=== PATIENT | female | born 1945 | race American Indian/Alaskan Native ===

== ENCOUNTER 2024-04-17 08:41 | Day surgery (SDC) | payer MEDICARE, SELFPAY ==
--- NOTE | ~2024-04-17 | FL_ITS ---
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 TECHNIQUE: Risks and benefits and possible complications were discussed with the patient and the consent form was signed. Patient was placed prone on the fluoroscopy table. The back was prepped and draped in routine sterile fashion. Betadine was used as a skin antiseptic. Utilizing fluoroscopic guidance, the L5-S1 interlaminar space was accessed with a 22 gague Wil spinal needle and clear CSF fluid was obtained. Opening pressure was 5 cm H2O in the left lateral decubitus position, however, would increase with Valsalva movements. 4 cc of fluid was sent for analysis. The needle was removed without immediate complications. Total fluoroscopy time: 1 minute 40 seconds FL/FL guided lumbar puncture LP IMPRESSION: Successful fluoroscopic guided lumbar puncture at L5-S1. Opening pressure was 5 cm H2O, however increased with Valsalva movements. This may suggests central stenosis above this level. This procedure was performed by Isreal Zavala PA-C and supervised by Dr. Thompson. Electronically signed by: Braxton Thompson MD 04/17/2024 02:41 PM [facility] [place]
[2024-04-17 10:41] VITALS: BMI 23.9
[2024-04-17 10:49] VITALS: BP 109/69; PULSE 75; RESP 18; TEMP 37.1; O2SAT 100
[2024-04-17 11:40] VITALS: BP 112/75; PULSE 71; RESP 18; TEMP 36.1; O2SAT 100
[2024-04-17 12:23] VITALS: BP 122/71; PULSE 71; RESP 18; TEMP 36.1; O2SAT 100
--- OUTSIDE RECORDS SUMMARY | 2024-04-23 16:29 | XMS_ITS | Continuity of Care Document ---
Author Organization [facility], Carrie PT Address [address] [place] [address] Care Team Providers Care Senior Engineering Associate Name Role Phone YARELY DINERO Referring Provider YARELY DINERO Primary Care Provider [phone] Assessment Encounter Date Assessment Date Assessment LastModified by Organization Details LastModified Time 03/13/2024 03/13/2024 A: Pt DC to [facility] and will cont strengthening on own to help improve ADLs P: Cont Poc. Progress to tolerance. Pt DC to [facility] [email or web address] Not available 03/13/2024 14:23:12 Plan of Treatment Reminders Order Date Submit Date Provider Last Modified By Organization Details Last Modified Time Details Appointments None record ed. Lab None record ed. Referral None record ed. Procedures None record ed. Surgeries None record ed. Imaging None record ed. Medication Orders None record ed. Patient TargetsNo targets recorded. Patient InstructionsNo instructions recorded. Reason for Referral None Reported. 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 Procedures Surgical History Date Name Laterality Status Provider Name and Address Organization Details Recorded Time 4 42739 Therapeutic Exercise (1:1) completed Zhen Smith, PT [address], [place], [address], [facility] 01/01/2024 12:52:58 4 30444: Manual therapy completed Zhen Smith, PT [address], [place], [address], [facility] 01/01/2024 12:51:19 4 82781 Therapeutic Exercise (1:1) completed Shakeel Rios, RAILWAY SIGNALLING ENGINEER [address], [place], [address], [facility] 12/27/2023 08:42:46 4 55595: Manual therapy completed Shakeel Rios, RAILWAY SIGNALLING ENGINEER [address], [place], [address], [facility] 12/27/2023 08:42:46 4 94046 Therapeutic Exercise (1:1) completed Shakeel Rios, RAILWAY SIGNALLING ENGINEER [address], [place], [address], [facility] 12/25/2023 12:38:33 4 57274: Manual therapy completed Shakeel Rios RAILWAY SIGNALLING ENGINEER [address], [place], [address], [facility] 12/25/2023 12:38:37 4 00733 Therapeutic Exercise (1:1) completed Zhen Smith PT [address], [place], [address], [facility] 12/18/2023 15:13:19 4 69806: Manual therapy completed Zhen Smith PT [address], [place], [address], [facility] 12/18/2023 15:13:19 4 03821 Therapeutic Exercise (1:1) completed Zhen Smith PT [address], [place], [address], [facility] 12/18/2023 12:31:39 4 11148: Manual therapy completed Zhen Smith PT [address], [place], [address], [facility] 12/18/2023 12:31:31 4 59057 Therapeutic Exercise (1:1) completed Shakeel Rios RAILWAY SIGNALLING ENGINEER [address], [place], [address], [facility] 12/12/2023 17:54:34 4 77762: Manual therapy completed Shakeel Rios RAILWAY SIGNALLING ENGINEER [address], [place], [address], [facility] 12/12/2023 17:54:34 4 61686 Therapeutic Exercise (1:1) completed Shakeel Rios PTA [address], [place], [address], [facility] 12/07/2023 11:12:18 4 24964: Manual therapy completed Shakeel Rios PTA [address], [place], [address], [facility] 12/11/2023 12:41:21 4 45851 Therapeutic Exercise (1:1) completed Zhen Smith PT [address], [place], [address], [facility] 12/06/2023 12:44:33 4 85533: Manual therapy completed Zhen Smith PT [address], [place], [address], [facility] 12/06/2023 12:44:10 4 43296 Therapeutic Exercise (1:1) completed Zhen Smith PT [address], [place], [address], [facility] 12/04/2023 12:37:09 4 88153: Manual therapy completed Zhen Smith, PT [address], [place], [address], [facility] 12/04/2023 12:37:24 4 06614 Therapeutic Exercise (1:1) completed Shakeel Rios, RAILWAY SIGNALLING ENGINEER [address], [place], [address], [facility] 11/29/2023 13:11:31 4 48955: Manual therapy completed Shakeel Rios, RAILWAY SIGNALLING ENGINEER [address], [place], [address], [facility] 11/29/2023 13:11:13 4 82980: Manual therapy completed Zhen Smith, PT [address], [place], [address], [facility] 11/27/2023 11:09:35 4 02708: Manual therapy completed Zhen Smith, PT [address], [place], [address], [facility] 11/22/2023 12:46:30 4 52920: Manual therapy completed Zhen Smith PT [address], [place], [address], [facility] 11/20/2023 12:40:40 4 76167: Manual therapy completed Zhen Smith PT [address], [place], [address], [facility] 11/15/2023 11:21:35 4 54551: Low complexity PT Eval completed Zhen Smith, PT [address], [place], [address], [facility] 11/15/2023 11:21:27 4 G8421 BMI Not Calculated, Reason Not Specified completed Zhen Smith, PT [address], [place], [address], [facility] 11/15/2023 11:26:23 4 G8428 Current Meds NOT Documented Reason Not Specified completed Zhen Smith, PT [address] [facility] [address], [place], [address], [facility] 11/15/2023 11:43:07 4 Sports Shoulder 4&1 completed Vazquez Heath MD [address] [facility] [address], [place], [address], [facility] 09/06/2023 11:38:04 Imaging Results None recorded. Procedure Notes None recorded. Medical Equipment None Reported. Allergies No known drug allergies Medications Name Sig Start Date Stop Date Status Note LastModified by Organization Details LastModified Time torsemide 20 mg tablet TAKE 2 TABLETS BY MOUTH EVERY DAY active Not Available Not Available No t Available tizanidine 2 mg tablet TAKE 1 TABLET BY MOUTH EVERYDAY AT BEDTIME active Not Available Not Available N ot Available simvastatin 20 mg tablet TAKE 1 TABLET BY MOUTH EVERYDAY AT BEDTIME active Not Available Not Available N ot Available furosemide 20 mg tablet TAKE 1 TABLET BY MOUTH EVERY DAY active Not Available Not Available No t Available carbidopa 25 mg-levodopa 100 mg tablet TAKE 1 TABLET BY MOUTH THREE TIMES A DAY FOR 30 DAYS active Not Available Not Available No t Available naproxen 500 mg tablet TAKE 1 TABLET BY MOUTH TWICE A DAY active Not Available Not Available No t Available oxycodone 5 mg tablet TAKE 1-2 TABLETS EVERY 4 HOURS NEEDED 7 DAYS active Not Available Not Available No t Available Eliquis 5 mg tablet TAKE 1 TABLET BY MOUTH TWICE A DAY active Not Available Not Available No t Available potassium chloride ER 20 mEq tablet,extend ed release TAKE 1 TABLET BY MOUTH TWICE A DAY active Not Available Not Available No t Available Vitals None Recorded Social History None recorded. Functional Status None recorded. Mental Status None recorded. Family History Nothing Reported. Medical History Condition Response Allergies/Hayfever N Coronary Artery Disease N Anxiety/Depression N Emphysema N Thyroid Problems N COPD N Pacemaker N Kidney/Bladder Problems N Anemia N Vascular Disease N Gastrointestinal Disease N Heart Attack (LA) N Diabetes N Autoimmune disease N Bleeding Disorder N Orthotics N Arthritis N Seizures/Epilepsy N Blood Clot N AIDS/HIV N Congestive Heart Failure (CHF) N Acid Reflux (GERD) N Cancer N Stroke N Asthma N Peripheral Vascular Disease N Sleep Apnea N Hepatitis N Heart Disease N Rheumatoid Arthritis N Arrhythmia N Pulmonary Embolism N Fibromyalgia N Hypertension N Osteoporosis N Gynecological HistoryNo gynecological history recorded. Obstetrics History GPAL:G 0 P 0 0 0 0 Past Encounters Encounter ID Performer Location Encounter Start Date Encounter Closed Date Diagnosis/Indication Diagnosis SNOMED-CT Code Diagnosis ICD10 Code [id number] Zhen Smith, PT [facility] [address] [place] [address] 02/12/2024 13:23:30 02/12/2024 14:18:55 History of reverse prosthetic total arthroplasty of right shoulder 9136597820 2019958 Z96.833 [id number] Zhen Smith, PT [facility] [address] [place] [address] 02/14/2024 10:50:46 02/14/2024 11:47:09 History of reverse prosthetic total arthroplasty of right shoulder 0907707440 0282547 Z96.564 [id number] MD [facility] [address] [place] [address] 02/14/2024 09:30:28 03/06/2024 16:08:25 Rupture of rotator cuff of right shoulder 5186199003 2209288 M75.121 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 8986780316 06716 M19.893 [id number] L[facility] [address] [place] [address] 02/19/2024 11:53:47 02/19/2024 13:01:35 History of reverse prosthetic total arthroplasty of right shoulder 5463804664 0532713 Z96.798 [id number] LYLE Seque[facility] PT [address] [facility] [address] 02/21/2024 14:54:04 02/21/2024 15:54:29 History of reverse prosthetic total arthroplasty of right shoulder 4065307465 3554193 Z96.539 [id number] L[facility] Se[facility] PT [address] [place] [address] 02/28/2024 13:05:06 02/28/2024 13:24:31 History of reverse prosthetic total arthroplasty of right shoulder 9850758368 7759544 Z96.064 [id number] LYLE Seque[facility] PT [address] [place] [address] 03/01/2024 13:27:44 03/01/2024 14:21:02 History of reverse prosthetic total arthroplasty of right shoulder 7755048709 8013183 Z96.378 [id number] Zhen Smith, PT [facility] [address] [place] [address] 03/06/2024 13:58:33 03/06/2024 17:00:46 History of reverse prosthetic total arthroplasty of right shoulder 3105445320 0709737 Z96.084 [id number] MD [facility] [address] [place] [address] 03/08/2024 13:23:42 03/08/2024 14:22:06 History of reverse prosthetic total arthroplasty of right shoulder 1110225496 8699682 Z96.879 [id number] Zhen Smith, PT [facility] [address] [place] [address] 03/11/2024 12:34:00 03/11/2024 13:22:57 History of reverse prosthetic total arthroplasty of right shoulder 7110286719 9624747 Z96.178 [id number] Zhen Smith, PT [facility] [address] [place] [address] 03/13/2024 13:25:29 03/13/2024 14:23:56 History of reverse prosthetic total arthroplasty of right shoulder 3616900631 1293081 Z96.611 Health Concerns Section Related Observation LastModified by Organization Detai ls LastModified Time None Recorded Concern Status LastModified by Organization Details LastModified Time None Recorded Payers Encounter Date Sequence Insurance Name Policy Number Policy Tello Covered Member ID Tello Member ID Guarantor Name 03/13/2024 2 [facility] [id number] PLAN (MEDICARE SUPPLEMENT) [id number] Debbie Mejia [id number] Debbie Mejia 03/13/2024 1 [place]ARE [place]: [facility] [employer] [facility] Debbie Mejia [id number] Debbie Mejia Notes Date Note Type Note Provider Name and Address Organization Details Recorded Time 03/13/2024 text/html Pt states she patel ve difficulties putting her hand behind her back to do anything hSakeel Rios, RAILWAY SIGNALLING ENGINEER [address], [place], [address], [facility] 03/13/2024 14:23:48 OBGyn Episode No OBEpisode recorded.
--- OUTSIDE RECORDS SUMMARY | 2024-04-23 16:29 | XMS_ITS | Data Portability ---
Author Organization [place] - [facility] Address [address] [place] [address] Care Team Providers Care Forest Resource Specialist Name Role Phone YARELY DINERO Referring Provider YARELY DINERO Primary Care Provider [phone] Assessment Encounter Date Assessment Date Assessment LastModified by Organization Details LastModified Time 03/01/2024 03/01/2024 A: Pt's cont to work on cuff strength with increase resistance and reps. Pt's mechanics cont to improve with pre's. P: Cont Poc. Progress to tolerance. [email or web address] Not available 03/01/2024 14:16:57 03/06/2024 03/06/2024 A: Pt improved extremely well overall and cont to progress with resistance strengthening. Pt's overhead motion is improving allowing for more functional activities to be performed. P: Cont Poc. Progress to tolerance. [email or web address] Not available 03/06/2024 15:42:14 03/08/2024 03/08/2024 A: See Med recert P: Cont Poc. Progress to tolerance. [email or web address] Not available 03/07/2024 12:56:16 03/11/2024 03/11/2024 A: Pt's active IR has improved. Advised pt not push her arm any higher than what she can do now. P: Cont Poc. Progress to tolerance. Not available 03/11/2024 13:22:19 03/13/2024 03/13/2024 A: Pt DC to [facility] and will cont strengthening on own to help improve ADLs P: Cont Poc. Progress to tolerance. Pt DC to I HEP [email or web address] Not available 03/13/2024 14:23:12 Plan of Treatment [...] Address Organization Details Recorded Time No complaints [id number] Active Status : 'A'; Not Available [facility] 4 09:21:31 Rupture of rotator cuff of right shoulder [id number] 9103 Active 2023 Vazquez Heath MD [address], [place], [address] , [facility] 4 11:37:36 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 [id number] 00 [facility] 4 11:38:44 Problem Notes None recorded. Procedures Surgical History Date Name Laterality Status Provider Name and Address Organization Details Recorded Time 4 20151 Therapeutic Exercise (1:1) completed Zhen Smith, PT [address], [place], [address], [facility] 01/01/2024 12:52:58 4 33273: Manual therapy completed Zhen Smith PT [address], [place], [address], [facility] 01/01/2024 12:51:19 4 65445 Therapeutic Exercise (1:1) completed Shakeel Rios PTA [address], [place], [address], [facility] 12/27/2023 08:42:46 4 45683: Manual therapy completed Shakeel Rios PTA [address], [place], [address], [facility] 12/27/2023 08:42:46 4 14193 Therapeutic Exercise (1:1) completed Shakeel Rios PTA [address], [place], [address], [facility] 12/25/2023 12:38:33 4 35405: Manual therapy completed Shakeel Rios [employer] [address], [place], [address], [facility] 12/25/2023 12:38:37 4 42926 Therapeutic Exercise (1:1) completed Zhen Smith, PT [address], [place], [address], [facility] 12/18/2023 15:13:19 4 53143: Manual therapy completed Zhen Smith PT [address], [place], [address], [facility] 12/18/2023 15:13:19 4 44058 Therapeutic Exercise (1:1) completed Zhen Smith, PT [address], [place], [address], [facility] 12/18/2023 12:31:39 4 36953: Manual therapy completed Zhen Smith PT [address], [place], [address], [facility] 12/18/2023 12:31:31 4 16504 Therapeutic Exercise (1:1) completed Shakeel Rios PTA [address], [place], [address], [facility] 12/12/2023 17:54:34 4 49750: Manual therapy completed Shakeel Rios PTA [address], [place], [address], [facility] 12/12/2023 17:54:34 4 92179 Therapeutic Exercise (1:1) completed Shakeel Rios PTA [address], [place], [address], [facility] 12/07/2023 11:12:18 4 73278: Manual therapy completed Shakeel Rios PTA [address], [place], [address], [facility] 12/11/2023 12:41:21 4 01334 Therapeutic Exercise (1:1) completed Zhen Smith, PT [address], [place], [address], [facility] 12/06/2023 12:44:33 4 21073: Manual therapy completed Zhen Smith, PT [address], [place], [address], [facility] 12/06/2023 12:44:10 4 96986 Therapeutic Exercise (1:1) completed Zhen Smith, PT [address], [place], [address], [facility] 12/04/2023 12:37:09 4 16200: Manual therapy completed Zhen Smith, PT [address], [place], [address], [facility] 12/04/2023 12:37:24 4 41375 Therapeutic Exercise (1:1) completed Shakeel Rios PTA [address], [place], [address], [facility] 11/29/2023 13:11:31 4 79689: Manual therapy completed Shakeel Rios PTA [address], [place], [address], [facility] 11/29/2023 13:11:13 4 76393: Manual therapy completed Zhen Smith PT [address], [place], [address], [facility] 11/27/2023 11:09:35 4 62903: Manual therapy completed Zhen Smith, PT [address], [place], [address], [facility] 11/22/2023 12:46:30 4 15429: Manual therapy completed Zhen Smith, PT [address] [facility], [place], [address], [facility] 11/20/2023 12:40:40 4 47990: Manual therapy completed Zhen Smith, PT [address], [place], [address], [facility] 11/15/2023 11:21:35 4 47723: Low complexity PT Eval completed Zhen Smith, PT [address], [place], [address], [facility] 11/15/2023 11:21:27 4 G8421 BMI Not Calculated, Reason Not Specified completed Zhen Smith, PT [address], [place], [address], [facility] 11/15/2023 11:26:23 4 G8428 Current Meds NOT Documented Reason Not Specified completed Zhen Smith, PT [address], [place], [address], [facility] 11/15/2023 11:43:07 4 Sports Shoulder 4&1 completed Vazquez Heath MD [address], [place], [address], [facility] 09/06/2023 11:38:04 Imaging Results None recorded. [...] Thyroid Problems N COPD N Pacemaker N Anemia N Kidney/Bladder Problems N Vascular Disease N Heart Attack (NV) N Gastrointestinal Disease N Diabetes N Autoimmune disease N Bleeding [...] Diagnosis/Indication Diagnosis SNOMED-CT Code Diagnosis ICD10 Code [id number] [facility] [address] [place] [address] 08/17/2023 10:53:24 09/05/2023 10:24:24 Pain of right shoulder joint [id number] 4654142 M25.511 Rupture of rotator cuff of right shoulder 5966531047 7020348 M75.125 [id number] MD Carrie [facility] [address] [place] [address] 09/06/2023 10:48:03 09/27/2023 09:33:16 Rupture of rotator cuff of right shoulder 9174649270 5285673 M75.221 [id number] MD Onesimo Carias 2nd floor [address] [place] [address] 11/08/2023 09:19:18 12/13/2023 11:19:32 Osteoarthritis of joint of right shoulder region 2399240872 61431 M19.011 History of reverse prosthetic total arthroplasty of right shoulder 9472068033 5044313 Z96.622 [id number] MD Melva Cariason PT [address] [place] [place] [address] 11/15/2023 10:36:00 11/15/2023 11:43:57 History of reverse prosthetic total arthroplasty of right shoulder 9558375596 4997724 Z96.572 [id number] Zhen Smith, PT [facility] [address] [facility] [address] 11/20/2023 11:59:41 11/20/2023 12:42:54 History of reverse prosthetic total arthroplasty of right shoulder 5379966182 4258670 Z96.687 [id number] Zhen Smith, PT [facility] [address] [place] [address] 11/22/2023 12:00:16 11/22/2023 12:46:49 History of reverse prosthetic total arthroplasty of right shoulder 5497684837 1908187 Z96.457 [id number] Zhen Smith, PT [facility] [address] [place] [address] 11/27/2023 10:30:58 11/27/2023 11:10:48 History of reverse prosthetic total arthroplasty of right shoulder 1500626151 0312834 Z96.922 [id number] Zhen Smith, PT [facility] [address] [facility] [place] [address] 11/29/2023 11:55:49 11/29/2023 13:15:01 History of reverse prosthetic total arthroplasty of right shoulder 8774919655 0845207 Z96.798 [id number] Zhen Smith, PT [facility] [address] [facility] [place] [address] 12/04/2023 11:54:47 12/04/2023 12:38:49 History of reverse prosthetic total arthroplasty of right shoulder 0556946044 7547677 Z96.360 [id number] Zhen Smith, PT [facility] [address] [place] [address] 12/06/2023 11:54:05 12/06/2023 12:46:24 History of reverse prosthetic total arthroplasty of right shoulder 2737212710 8015279 Z96.854 [id number] Zhen Smith, PT [facility] [address] [place] [address] 12/11/2023 11:54:12 12/11/2023 12:47:10 History of reverse prosthetic total arthroplasty of right shoulder 1915111946 4810737 Z96.063 [id number] Zhen Smith, PT [facility] [address] [place] [address] 12/13/2023 11:56:44 12/13/2023 12:45:36 History of reverse prosthetic total arthroplasty of right shoulder 6129391945 9528585 Z96.280 [id number] Vazquez Heath MD [facility] [address] [place] [address] 12/18/2023 11:52:23 12/18/2023 12:44:05 History of reverse prosthetic total arthroplasty of right shoulder 6983836857 3905765 Z96.488 [id number] Zhen Smith, PT [facility] [address] [place] [address] 12/20/2023 11:50:53 12/20/2023 12:36:11 History of reverse prosthetic total arthroplasty of right shoulder 2682569668 6711317 Z96.348 [id number] Zhen Smith, PT [facility] [address] [place] [address] 12/25/2023 11:56:34 12/25/2023 12:41:39 History of reverse prosthetic total arthroplasty of right shoulder 2617580436 6253035 Z96.717 [id number] Zhen Smith, PT [facility] [address] [place] [address] 12/27/2023 11:54:18 12/27/2023 13:03:29 History of reverse prosthetic total arthroplasty of right shoulder 3999414340 8606956 Z96.829 [id number] Zhen Smith, PT [facility] [address] [place] [address] 01/01/2024 11:55:45 01/01/2024 12:53:53 History of reverse prosthetic total arthroplasty of right shoulder 0000920589 1117505 Z96.938 [id number] Zhen Smith, PT [facility] [address] [place] [address] 01/03/2024 11:59:22 01/03/2024 12:44:28 History of reverse prosthetic total arthroplasty of right shoulder 5163590627 0783353 Z96.301 [id number] FRANKLYN Peguero 3rd floor [address] [place] [address] 01/10/2024 09:20:17 02/02/2024 11:30:34 History of reverse prosthetic total arthroplasty of right shoulder 6496719603 1732051 Z96.880 [id number] Cam Thrasher, PT [facility] [address] [place] [address] 01/17/2024 15:55:35 01/17/2024 16:39:27 History of reverse prosthetic total arthroplasty of right shoulder 8715174531 8922859 Z96.564 [id number] Cam Thrasher, PT [facility] [address] [place] [place] [address] 01/22/2024 09:26:38 01/22/2024 10:29:47 History of reverse prosthetic total arthroplasty of right shoulder 7055805494 2908579 Z96.268 [id number] Zhen Smith, PT [facility] [address] [place] [place] [address] 01/24/2024 11:51:42 01/24/2024 12:34:04 History of reverse prosthetic total arthroplasty of right shoulder 4043429574 1164042 Z96.476 [id number] Zhen Smith, PT [facility] [address] [place] [address] 01/29/2024 11:25:45 01/29/2024 12:35:24 History of reverse prosthetic total arthroplasty of right shoulder 4536653403 0848219 Z96.140 [id number] MD Carrie Carias PT [address] [place] [place] [address] 01/31/2024 10:56:47 01/31/2024 12:02:23 History of reverse prosthetic total arthroplasty of right shoulder 4532225715 1832307 Z96.045 [id number] Zhen Smith, PT [facility] [address] [place] [address] 02/05/2024 11:29:18 02/05/2024 12:25:07 History of reverse prosthetic total arthroplasty of right shoulder 0926447303 9265029 Z96.744 [id number] Zhen Smith PT [facility] [address] [place] [address] 02/07/2024 10:55:14 02/07/2024 11:43:32 History of reverse prosthetic total arthroplasty of right shoulder 8692898615 9529499 Z96.614 [id number] Zhen Smith PT [facility] [address] [place] [address] 02/12/2024 13:23:30 02/12/2024 14:18:55 History of reverse prosthetic total arthroplasty of right shoulder 1361741718 6421304 Z96.494 [id number] LYLE Sequeiraon PT [address] [place] [address] 02/14/2024 10:50:46 02/14/2024 11:47:09 History of reverse prosthetic total arthroplasty of right shoulder 2921399483 0824620 Z96.627 [id number] MD Carrie [facility] [address] [place] [address] 02/14/2024 09:30:28 03/06/2024 16:08:25 Rupture of rotator cuff of right shoulder 8488336175 9106717 M75.121 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 9523050821 18679 M19.186 [id number] Zhen Smith PT [facility] [address] [place] [address] 02/19/2024 11:53:47 02/19/2024 13:01:35 History of reverse prosthetic total arthroplasty of right shoulder 9420400567 4565290 Z96.259 [id number] Zhen Smith PT [facility] [address] [place] [address] 02/21/2024 14:54:04 02/21/2024 15:54:29 History of reverse prosthetic total arthroplasty of right shoulder 3667118386 7192110 Z96.132 [id number] Zhen Smith, PT [facility] [address] [place] [address] 02/28/2024 13:05:06 02/28/2024 13:24:31 History of reverse prosthetic total arthroplasty of right shoulder 6421523514 4139663 Z96.581 [id number] Zhen Smith, PT [facility] [address] [place] [address] 03/01/2024 13:27:44 03/01/2024 14:21:02 History of reverse prosthetic total arthroplasty of right shoulder 1110660304 2336980 Z96.385 [id number] Zhen Smith, PT [facility] [address] [place] [address] 03/06/2024 13:58:33 03/06/2024 17:00:46 History of reverse prosthetic total arthroplasty of right shoulder 5653104152 3472708 Z96.977 [id number] MD Melva Cariason PT [address] [place] [address] 03/08/2024 13:23:42 03/08/2024 14:22:06 History of reverse prosthetic total arthroplasty of right shoulder 1474110898 6007787 Z96.377 [id number] Zhen Smith, PT [facility] [address] [place] [address] 03/11/2024 12:34:00 03/11/2024 13:22:57 History of reverse prosthetic total arthroplasty of right shoulder 8713141433 5815081 Z96.468 [id number] Zhen Smith, PT [facility] [address] [place] [address] 03/13/2024 13:25:29 03/13/2024 14:23:56 History of reverse prosthetic total arthroplasty of right shoulder 9683778917 4641093 Z96.611 Health Concerns Section Related Observation LastModified by Organization Detai ls LastModified Time None Recorded Concern Status LastModified by Organization Details LastModified Time None Recorded Advance Directives Directive None Recorded Payers Encounter Date Sequence Insurance Name Policy Number Policy Tello Covered Member ID Tello Member ID Guarantor Name 03/01/2024 2 [facility] (MEDICARE SUPPLEMENT) [id number] Debbie Axas [id number] Debbie Axas 03/01/2024 1 [place] Debbie Axas [id number] Debbie Axas 03/06/2024 2 [facility] (MEDICARE SUPPLEMENT) [id number] Debbie Axas [id number] Debbie Axas 03/06/2024 1 [place] Debbie Axas [id number] Debbie Axas 03/08/2024 2 [facility] (MEDICARE SUPPLEMENT) [id number] Debbie Axas [id number] Debbie Axas 03/08/2024 1 [place] Debbie Axas [id number] Debbie Axas 03/11/2024 2 [facility] (MEDICARE SUPPLEMENT) [id number] Debbie Axas [id number] Debbie Axas 03/11/2024 1 [place] Debbie Axas [id number] 0 Debbie Axas 03/13/2024 2 [facility] (MEDICARE SUPPLEMENT) [id number] Debbie Axas [id number] Debbie Axas 03/13/2024 1 [place] Debbie Axas [id number] 0 Debbie Axas Notes Date Note Type Note Provider Name and Address Organization Details Recorded Time 03/01/2024 text/html my shoulder is feeling good but I still get pain 06/24. Pt have trouble grabbing items from top shelf. Shakeel Rios, [employer] [address], [place], [address], [facility] 03/01/2024 14:20:51 03/06/2024 text/html Pt states she patel ve difficulties putting her hand behind her back to do anything Shakeel Rios, [employer] [address], [place], [address], [facility] 03/06/2024 15:43:13 03/08/2024 text/html Pt states she patel ve difficulties putting her hand behind her back to do anything Zhen Smith, PT [address], [place], [address], [facility] 03/10/2024 22:11:15 03/11/2024 text/html Pt states no new complaints. Zhen Smith, PT [address], [place], [address], [facility] 03/11/2024 13:22:40 03/13/2024 text/html Pt states she patel ve difficulties putting her hand behind her back to do anything Shakeel Rios, [employer] [address], [place], [address], [facility] 03/13/2024 14:23:48 OBGyn Episode No OBEpisode recorded.
--- OUTSIDE RECORDS SUMMARY | 2024-04-23 16:29 | XMS_ITS | Continuity of Care Document ---
Author Organization [place] - [facility] Address [address] [place] [address] Care Team Providers Care Display Designer Name Role Phone YARELY DINERO Referring Provider [phone] YARELY DINERO Primary Care Provider Assessment Encounter Date Assessment Date Assessment LastModified by Organization Details LastModified Time 03/11/2024 03/11/2024 A: Pt's active IR has improved. Advised pt not push her arm any higher than what she can do now. P: Cont Poc. Progress to tolerance. [email or web address] Not available 03/11/2024 13:22:19 Plan of Treatment Reminders Order Date Submit [...] Address Organization Details Recorded Time No complaints [id number] Active Status : 'A'; Not Available [facility] 4 09:21:31 Rupture of rotator cuff of right shoulder [id number] 9103 Active 2023 Vazquez Heath MD [address], [place], [address] , [facility] 4 11:37:36 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 [id number] 00 Active 2023 CHARO estrada [place] - [facility] 4 11:38:44 Problem Notes None recorded. Procedures Surgical History Date Name Laterality Status Provider Name and Address Organization Details Recorded Time 4 33115 Therapeutic Exercise (1:1) completed Zhen Smith, PT [address], [place], [address], [facility] 01/01/2024 12:52:58 4 94311: Manual therapy completed Zhen Smith, PT [address], [place], [address], [facility] 01/01/2024 12:51:19 4 80472 Therapeutic Exercise (1:1) completed Shakeel Rios, MEDICAL ASST [address], [place], [address], [facility] 12/27/2023 08:42:46 4 33489: Manual therapy completed Shakeel Rios, MEDICAL ASST [address], [place], [address], [facility] 12/27/2023 08:42:46 4 68420 Therapeutic Exercise (1:1) completed Shakeel Rios, MEDICAL ASST [address], [place], [address], [facility] 12/25/2023 12:38:33 4 44943: Manual therapy completed Shakeel Rios MEDICAL ASST [address], [place], [address], [facility] 12/25/2023 12:38:37 4 00215 Therapeutic Exercise (1:1) completed Zhen Smith, PT [address], [place], [address], [facility] 12/18/2023 15:13:19 4 47311: Manual therapy completed Zhen Smith PT [address], [place], [address], [facility] 12/18/2023 15:13:19 4 29647 Therapeutic Exercise (1:1) completed Zhen Smith PT [address], [place], [address], [facility] 12/18/2023 12:31:39 4 53592: Manual therapy completed Zhen Smith PT [address], [place], [address], [facility] 12/18/2023 12:31:31 4 29250 Therapeutic Exercise (1:1) completed Shakeel Rios MEDICAL ASST [address], [place], [address], [facility] 12/12/2023 17:54:34 4 84178: Manual therapy completed Shakeel Rios MEDICAL ASST [address], [place], [address], [facility] 12/12/2023 17:54:34 4 47536 Therapeutic Exercise (1:1) completed Shakeel Rios PTA [address], [place], [address], [facility] 12/07/2023 11:12:18 4 74820: Manual therapy completed Shakeel Rios PTA [address], [place], [address], [facility] 12/11/2023 12:41:21 4 61570 Therapeutic Exercise (1:1) completed Zhen Smith PT [address], [place], [address], [facility] 12/06/2023 12:44:33 4 08754: Manual therapy completed Zhen Smith PT [address], [place], [address], [facility] 12/06/2023 12:44:10 4 51362 Therapeutic Exercise (1:1) completed Zhen Smith PT [address], [place], [address], [facility] 12/04/2023 12:37:09 4 69077: Manual therapy completed Zhen Smith, PT [address], [place], [address], [facility] 12/04/2023 12:37:24 4 45678 Therapeutic Exercise (1:1) completed Shakeel Rios, MEDICAL ASST [address], [place], [address], [facility] 11/29/2023 13:11:31 4 81680: Manual therapy completed Shakeel Rios, MEDICAL ASST [address], [place], [address], [facility] 11/29/2023 13:11:13 4 69048: Manual therapy completed Zhen Smith, PT [address], [place], [address], [facility] 11/27/2023 11:09:35 4 43573: Manual therapy completed Zhen Smith, PT [address], [place], [address], [facility] 11/22/2023 12:46:30 4 08777: Manual therapy completed Zhen Smith PT [address], [place], [address], [facility] 11/20/2023 12:40:40 4 54953: Manual therapy completed Zhen Smith PT [address], [place], [address], [facility] 11/15/2023 11:21:35 4 65576: Low complexity PT Eval completed Zhen Smith, PT [address], [place], [address], [facility] 11/15/2023 11:21:27 4 G8421 BMI Not Calculated, Reason Not Specified completed Zhen Smith, PT [address], [place], [address], [facility] 11/15/2023 11:26:23 4 G8428 Current Meds NOT Documented Reason Not Specified completed Zhen Smith, PT [address] [facility] [address], [place], [address], [facility] 11/15/2023 11:43:07 4 Sports Shoulder 4&1 completed Vazquez Heath MD [address], [place], [address], [facility] 09/06/2023 11:38:04 Imaging Results None recorded. [...] Problems N Vascular Disease N Heart Attack ([place]) N Gastrointestinal Disease N Diabetes N Autoimmune [...] Diagnosis/Indication Diagnosis SNOMED-CT Code Diagnosis ICD10 Code [id number] Zhen Smith, PT [facility] [address] [place] [address] 02/12/2024 13:23:30 02/12/2024 14:18:55 History of reverse prosthetic total arthroplasty of right shoulder 4674994374 2895553 Z96.559 [id number] Zhen Smith, PT [facility] [address] [facility] [place] [address] 02/14/2024 10:50:46 02/14/2024 11:47:09 History of reverse prosthetic total arthroplasty of right shoulder 3280540005 5547449 Z96.202 [id number] MD [facility] [address] [place] [address] 02/14/2024 09:30:28 03/06/2024 16:08:25 Rupture of rotator cuff of right shoulder 6498821204 7536194 M75.121 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 0228857423 58999 M19.206 [id number] LYLE Sequeira PT [address] [facility] [place] [address] 02/19/2024 11:53:47 02/19/2024 13:01:35 History of reverse prosthetic total arthroplasty of right shoulder 2754174913 2647443 Z96.994 [id number] LYLE Sequeira PT [address] [facility] [place] [address] 02/21/2024 14:54:04 02/21/2024 15:54:29 History of reverse prosthetic total arthroplasty of right shoulder 2364023424 7459373 Z96.150 [id number] Zhen Smith PT [facility] [address] [place] [address] 02/28/2024 13:05:06 02/28/2024 13:24:31 History of reverse prosthetic total arthroplasty of right shoulder 8820422951 9778950 Z96.594 [id number] Zhen Smith, PT [facility] [address] [place] [address] 03/01/2024 13:27:44 03/01/2024 14:21:02 History of reverse prosthetic total arthroplasty of right shoulder 6319725706 1814431 Z96.860 [id number] Zhen Smith PT [facility] [address] [place] [address] 03/06/2024 13:58:33 03/06/2024 17:00:46 History of reverse prosthetic total arthroplasty of right shoulder 1592949725 4042579 Z96.457 [id number] MD [facility] [address] [place] [address] 03/08/2024 13:23:42 03/08/2024 14:22:06 History of reverse prosthetic total arthroplasty of right shoulder 3462570357 4484692 Z96.006 [id number] Zhen Smith, PT [facility] [address] [place] [address] 03/11/2024 12:34:00 03/11/2024 13:22:57 History of reverse prosthetic total arthroplasty of right shoulder 9616882724 7617925 Z96.611 Health Concerns Section Related Observation LastModified by Organization Detai ls LastModified Time None Recorded Concern Status LastModified by Organization Details LastModified Time None Recorded Payers Encounter Date Sequence Insurance Name Policy Number Policy Tello Covered Member ID Tello Member ID Guarantor Name 03/11/2024 2 [facility] (MEDICARE SUPPLEMENT) [id number] Debbie Mejia [id number] Debbie Mejia 03/11/2024 1 [place]: [facility] Debbie Mejia [id number] Debbie Mejia Notes Date Note Type Note Provider Name and Address Organization Details Recorded Time 03/11/2024 text/html Pt states no new complaints. Zhen Smith, PT [address], [place], [address], [facility] 03/11/2024 13:22:40 OBGyn Episode No OBEpisode recorded.
--- OUTSIDE RECORDS SUMMARY | 2024-04-23 16:30 | XMS_ITS | Continuity of Care Document ---
Author Organization [facility] Address [address] [place] [address] Care Team Providers Care Template Inspector Name Role Phone YARELY DINEOR Referring Provider YARELY DINERO Primary Care Provider [phone] Assessment Encounter Date Assessment Date Assessment LastModified by Organization Details LastModified Time 03/01/2024 03/01/2024 A: Pt's cont to work on cuff strength with increase resistance and reps. Pt's mechanics cont to improve with pre's. P: Cont Poc. Progress to tolerance. 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 Procedures Surgical History Date Name Laterality Status Provider Name and Address Organization Details Recorded Time 4 67054 Therapeutic Exercise (1:1) completed Zhen Smith, PT [address], [place], [address], [facility] 01/01/2024 12:52:58 4 91376: Manual therapy completed Zhen Smith, PT [address], [place], [address], [facility] 01/01/2024 12:51:19 4 61689 Therapeutic Exercise (1:1) completed Shakeel Rios, POLICE CADET [address], [place], [address], [facility] 12/27/2023 08:42:46 4 85256: Manual therapy completed Shakeel Rios POLICE [employer] [address], [place], [address], [facility] 12/27/2023 08:42:46 4 12066 Therapeutic Exercise (1:1) completed Shakeel Rios, POLICE CADET [address], [place], [address], [facility] 12/25/2023 12:38:33 4 67270: Manual therapy completed Shakeel Rios, POLICE CADET [address], [place], [address], [facility] 12/25/2023 12:38:37 4 41926 Therapeutic Exercise (1:1) completed Zhen Smith, PT [address], [place], [address], [facility] 12/18/2023 15:13:19 4 64696: Manual therapy completed Zhen Smith PT [address], [place], [address], [facility] 12/18/2023 15:13:19 4 02543 Therapeutic Exercise (1:1) completed Zhen Smith PT [address], [place], [address], [facility] 12/18/2023 12:31:39 4 99181: Manual therapy completed Zhen Smith PT [address], [place], [address], [facility] 12/18/2023 12:31:31 4 51613 Therapeutic Exercise (1:1) completed Shakeel Rios, POLICE CADET [address], [place], [address], [facility] 12/12/2023 17:54:34 4 88129: Manual therapy completed Shakeel Rios POLICE [employer] [address], [place], [address], [facility] 12/12/2023 17:54:34 4 36576 Therapeutic Exercise (1:1) completed Shakeel Rios PTA [address], [place], [address], [facility] 12/07/2023 11:12:18 4 41794: Manual therapy completed Shakeel Rios PTA [address], [place], [address], [facility] 12/11/2023 12:41:21 4 17309 Therapeutic Exercise (1:1) completed Zhen Smith PT [address], [place], [address], [facility] 12/06/2023 12:44:33 4 70827: Manual therapy completed Zhen Smith PT [address], [place], [address], [facility] 12/06/2023 12:44:10 4 55340 Therapeutic Exercise (1:1) completed Zhen Smith, PT [address], [place], [address], [facility] 12/04/2023 12:37:09 4 86823: Manual therapy completed Zhen Smith, PT [address], [place], [address], [facility] 12/04/2023 12:37:24 4 34657 Therapeutic Exercise (1:1) completed Shakeel Rios, POLICE CADET [address], [place], [address], [facility] 11/29/2023 13:11:31 4 63510: Manual therapy completed Shakeel Rios, POLICE CADET [address], [place], [address], [facility] 11/29/2023 13:11:13 4 75525: Manual therapy completed Zhen Smith, PT [address], [place], [address], [facility] 11/27/2023 11:09:35 4 92238: Manual therapy completed Zhen Smith, PT [address], [place], [address], [facility] 11/22/2023 12:46:30 4 25712: Manual therapy completed Zhen Smith PT [address], [place], [address], [facility] 11/20/2023 12:40:40 4 58583: Manual therapy completed Zhen Smith PT [address], [place], [address], [facility] 11/15/2023 11:21:35 4 93848: Low complexity PT Eval completed Zhen Smith PT [address], [place], [address], [facility] 11/15/2023 11:21:27 4 G8421 BMI Not Calculated, Reason Not Specified completed Zhen Smith, PT [address], [place], [address], [facility] 11/15/2023 11:26:23 4 G8428 Current Meds NOT Documented Reason Not Specified completed Zhen Smith, LYLE [address] [facility] [address], [place], [address], [facility] 11/15/2023 11:43:07 4 Sports Shoulder 4&1 completed Vazquez Heath MD [address] [facility] [address], [place], [address], [facility] 09/06/2023 11:38:04 Imaging [...] Disease N Gastrointestinal Disease N Heart Attack ([place]) N Diabetes N Autoimmune disease N Bleeding [...] Diagnosis/Indication Diagnosis SNOMED-CT Code Diagnosis ICD10 Code [id number] MD [facility] [address] [place] [address] 01/31/2024 10:56:47 01/31/2024 12:02:23 History of reverse prosthetic total arthroplasty of right shoulder 4349676449 9896862 Z96.781 [id number] Zhen Smith, PT [facility] [address] [place] [address] 02/05/2024 11:29:18 02/05/2024 12:25:07 History of reverse prosthetic total arthroplasty of right shoulder 9999997203 4037653 Z96.962 [id number] Zhen Smith PT [facility] [address] [facility] [place] [address] 02/07/2024 10:55:14 02/07/2024 11:43:32 History of reverse prosthetic total arthroplasty of right shoulder 1712378715 4755234 Z96.436 [id number] LYLE Sequeira PT [address] [place] [address] 02/12/2024 13:23:30 02/12/2024 14:18:55 History of reverse prosthetic total arthroplasty of right shoulder 1497447007 7937678 Z96.238 [id number] LYLE Sequeira PT [address] [facility] [place] [address] 02/14/2024 10:50:46 02/14/2024 11:47:09 History of reverse prosthetic total arthroplasty of right shoulder 6160770113 5096530 Z96.762 [id number] MD [facility] [address] [facility] [address] 02/14/2024 09:30:28 03/06/2024 16:08:25 Rupture of rotator cuff of right shoulder 8183413360 0186488 M75.121 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 6905508736 69387 M19.518 [id number] Zhen Smith, PT [facility] [address] [place] [address] 02/19/2024 11:53:47 02/19/2024 13:01:35 History of reverse prosthetic total arthroplasty of right shoulder 6521933430 7717315 Z96.283 [id number] Zhen Smith, PT [facility] [address] [place] [address] 02/21/2024 14:54:04 02/21/2024 15:54:29 History of reverse prosthetic total arthroplasty of right shoulder 0171596396 9409694 Z96.005 [id number] Zhen Smith, PT [facility] [address] [place] [address] 02/28/2024 13:05:06 02/28/2024 13:24:31 History of reverse prosthetic total arthroplasty of right shoulder 9938385201 7631628 Z96.448 [id number] Zhen Smith, PT [facility] [address] [place] [address] 03/01/2024 13:27:44 03/01/2024 14:21:02 History of reverse prosthetic total arthroplasty of right shoulder 6346661693 4235327 Z96.611 Health Concerns Section Related Observation LastModified by Organization Detai ls LastModified Time None Recorded Concern Status LastModified by Organization Details LastModified Time None Recorded Payers Encounter Date Sequence Insurance Name Policy Number Policy Tello Covered Member ID Tello Member ID Guarantor Name 03/01/2024 2 [facility] (MEDICARE SUPPLEMENT) [id number] Debbie Mejia [id number] Debbie Mejia 03/01/2024 1 MED[place]ARE [place]: [facility] Debbie Mejia [id number] Debbie Mejia Notes Date Note Type Note Provider Name and Address Organization Details Recorded Time 03/01/2024 text/html my shoulder is feeling good but I still get pain 2/10. Pt have trouble grabbing items from top shelf. Shakeel Rios, POLICE CADET [address] [facility] [address], [place], [address], [facility] [place] 03/01/2024 14:20:51 OBGyn Episode No OBEpisode recorded.
--- OUTSIDE RECORDS SUMMARY | 2024-04-23 16:30 | XMS_ITS | Continuity of Care Document ---
Author Organization [facility], [facility] Address [address] [place] [address] Care Team Providers Care Alberene Stone Setter Name Role Phone YARELY DINERO Referring Provider YARELY DINERO Primary Care Provider [phone] Assessment Encounter Date Assessment Date Assessment LastModified by Organization Details LastModified Time 03/08/2024 03/08/2024 A: See Med recert P: Cont Poc. Progress to tolerance. 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 Procedures Surgical History Date Name Laterality Status Provider Name and Address Organization Details Recorded Time 4 64245 Therapeutic Exercise (1:1) completed Zhen Smith, PT [address], [place], [address], [facility] 01/01/2024 12:52:58 4 03134: Manual therapy completed Zhen Smith, PT [address], [place], [address], [facility] 01/01/2024 12:51:19 4 93702 Therapeutic Exercise (1:1) completed Shakeel Rios, FRAME COVERER [address], [place], [address], [facility] 12/27/2023 08:42:46 4 58640: Manual therapy completed Shakeel Rios FRAME COVERER [address], [place], [address], [facility] 12/27/2023 08:42:46 4 96120 Therapeutic Exercise (1:1) completed Shakeel Rios, FRAME COVERER [address], [place], [address], [facility] 12/25/2023 12:38:33 4 88139: Manual therapy completed Shakeel Rios PTA [address], [place], [address], [facility] 12/25/2023 12:38:37 4 10123 Therapeutic Exercise (1:1) completed Zhen Smith PT [address], [place], [address], [facility] 12/18/2023 15:13:19 4 37542: Manual therapy completed Zhen Smith PT [address], [place], [address], [facility] 12/18/2023 15:13:19 4 54963 Therapeutic Exercise (1:1) completed Zhen Smith PT [address], [place], [address], [facility] 12/18/2023 12:31:39 4 43263: Manual therapy completed Zhen Smith PT [address], [place], [address], [facility] 12/18/2023 12:31:31 4 60938 Therapeutic Exercise (1:1) completed Shakeel Rios, FRAME COVERER [address], [place], [address], [facility] 12/12/2023 17:54:34 4 29367: Manual therapy completed Shakeel Rios, FRAME COVERER [address], [place], [address], [facility] 12/12/2023 17:54:34 4 59799 Therapeutic Exercise (1:1) completed Shakeel Rois, FRAME COVERER [address], [place], [address], [facility] 12/07/2023 11:12:18 4 32495: Manual therapy completed Shakeel Rios, FRAME COVERER [address], [place], [address], [facility] 12/11/2023 12:41:21 4 60878 Therapeutic Exercise (1:1) completed Zhen Smith, PT [address], [place], [address], [facility] 12/06/2023 12:44:33 4 87258: Manual therapy completed Zhen Smith PT [address], [place], [address], [facility] 12/06/2023 12:44:10 4 19335 Therapeutic Exercise (1:1) completed Zhen Smith PT [address], [place], [address], [facility] 12/04/2023 12:37:09 4 67211: Manual therapy completed Zhen Smith PT [address], [place], [address], [facility] 12/04/2023 12:37:24 4 06287 Therapeutic Exercise (1:1) completed Shakeel Rios FRAME COVERER [address], [place], [address], [facility] 11/29/2023 13:11:31 4 06218: Manual therapy completed Shakeel Rios PTA [address], [place], [address], [facility] 11/29/2023 13:11:13 4 52065: Manual therapy completed Zhen Smith PT [address], [place], [address], [facility] 11/27/2023 11:09:35 4 04595: Manual therapy completed Zhen Smith PT [address], [place], [address], [facility] 11/22/2023 12:46:30 4 63919: Manual therapy completed Zhen Smith PT [address], [place], [address], [facility] 11/20/2023 12:40:40 4 17877: Manual therapy completed Zhen Smith PT [address], [place], [address], [facility] 11/15/2023 11:21:35 4 74276: Low complexity PT Eval completed Zhen Smith, PT [address], [place], [address], [facility] 11/15/2023 11:21:27 4 G8421 BMI Not Calculated, Reason Not Specified completed Zhen Smith, PT [address], [place], [address], [facility] 11/15/2023 11:26:23 4 G8428 Current Meds NOT Documented Reason Not Specified completed Zhen Smith, PT [address], [place], [address], [facility] 11/15/2023 11:43:07 4 Sports Shoulder 4&1 completed Vazquez Heath MD [address], [place], [address], [facility] 09/06/2023 11:38:04 Imaging Results None recorded. Procedure [...] Problems N Vascular Disease N Heart Attack ([place]) N Gastrointestinal Disease N Diabetes N Autoimmune [...] Diagnosis/Indication Diagnosis SNOMED-CT Code Diagnosis ICD10 Code [id number] Zhen Smith, PT [facility] [address] [facility] [place] [address] 02/07/2024 10:55:14 02/07/2024 11:43:32 History of reverse prosthetic total arthroplasty of right shoulder 6162568677 8566296 Z96.848 [id number] Zhen Smith, PT [facility] [address] [place] [address] 02/12/2024 13:23:30 02/12/2024 14:18:55 History of reverse prosthetic total arthroplasty of right shoulder 8881402403 2574750 Z96.446 [id number] LYLE Sequeira PT [address] [place] [address] 02/14/2024 10:50:46 02/14/2024 11:47:09 History of reverse prosthetic total arthroplasty of right shoulder 8089298403 6386291 Z96.387 [id number] MD [facility] [address] [place] [address] 02/14/2024 09:30:28 03/06/2024 16:08:25 Rupture of rotator cuff of right shoulder 1387923364 1756658 M75.121 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 6068804559 52800 M19.036 [id number] LYLE Sequeira PT [address] [place] [address] 02/19/2024 11:53:47 02/19/2024 13:01:35 History of reverse prosthetic total arthroplasty of right shoulder 2074981763 4108325 Z96.554 [id number] LYLE Sequeira PT [address] [place] [address] 02/21/2024 14:54:04 02/21/2024 15:54:29 History of reverse prosthetic total arthroplasty of right shoulder 1973597025 7285166 Z96.303 [id number] LYLE Sequeira PT [address] [facility] [place] [place] [address] 02/28/2024 13:05:06 02/28/2024 13:24:31 History of reverse prosthetic total arthroplasty of right shoulder 8756042709 0184667 Z96.152 [id number] Zhen Smith, PT [facility] [address] [place] [address] 03/01/2024 13:27:44 03/01/2024 14:21:02 History of reverse prosthetic total arthroplasty of right shoulder 4494022035 7856242 Z96.432 [id number] Zhen Smith PT [facility] [address] [place] [address] 03/06/2024 13:58:33 03/06/2024 17:00:46 History of reverse prosthetic total arthroplasty of right shoulder 5223267835 4567108 Z96.354 [id number] MD [facility] [address] [place] [address] 03/08/2024 13:23:42 03/08/2024 14:22:06 History of reverse prosthetic total arthroplasty of right shoulder 1609187364 2038275 Z96.611 Health Concerns Section Related Observation LastModified by Organization Detai ls LastModified Time None Recorded Concern Status LastModified by Organization Details LastModified Time None Recorded Payers Encounter Date Sequence Insurance Name Policy Number Policy Tello Covered Member ID Tello Member ID Guarantor Name 03/08/2024 2 [facility] (MEDICARE SUPPLEMENT) [id number] Debbie Mejia [id number] 1 Debbie Mejia 03/08/2024 1 [place] [facility] Debbie Mejia [id number] Debbie Mejia Notes Date Note Type Note Provider Name and Address Organization Details Recorded Time 03/08/2024 text/html Pt states she patel ve difficulties putting her hand behind her back to do anything Zhen Smith, PT [address], [place], [address], [facility] 03/10/2024 22:11:15 OBGyn Episode No OBEpisode recorded.
--- OUTSIDE RECORDS SUMMARY | 2024-04-23 16:30 | XMS_ITS | Continuity of Care Document ---
Author Organization [place] [facility], [facility] Address [address] [place] [address] Care Team Providers Care Pharmacy Sales Representative Name Role Phone YARELY DINERO Referring Provider YARELY DINERO Primary Care Provider Assessment Encounter Date Assessment Date Assessment LastModified by Organization Details LastModified Time 02/28/2024 02/28/2024 A: Pt's active scaption has improved. P: Cont Poc. Progress to tolerance. [email or web address] Not available 02/28/2024 13:24:09 Plan of Treatment Reminders Order Date Submit [...] Address Organization Details Recorded Time No complaints 934104001 Active Status : 'A'; Not Available [facility] 4 09:21:31 Rupture of rotator cuff of right shoulder 2010089067234 9103 Active 2023 Vazquez Heath MD [address], [place], [address] , 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 Procedures Surgical History Date Name Laterality Status Provider Name and Address Organization Details Recorded Time 4 06931 Therapeutic Exercise (1:1) completed Zhen Smith, PT [address], [place], [address], [facility] 01/01/2024 12:52:58 4 96358: Manual therapy completed Zhen Smith, PT [address], [place], [address], [facility] 01/01/2024 12:51:19 4 14962 Therapeutic Exercise (1:1) completed Shakeel Rios, CLINICAL TRIAL SPECIALIST [address], [place], [address], [facility] 12/27/2023 08:42:46 4 91744: Manual therapy completed Shakeel Rios, CLINICAL TRIAL SPECIALIST [address], [place], [address], [facility] 12/27/2023 08:42:46 4 10117 Therapeutic Exercise (1:1) completed Shakeel Rios, CLINICAL TRIAL SPECIALIST [address], [place], [address], [facility] 12/25/2023 12:38:33 4 01888: Manual therapy completed Shakeel Rios CLINICAL TRIAL SPECIALIST [address], [place], [address], [facility] 12/25/2023 12:38:37 4 81506 Therapeutic Exercise (1:1) completed Zhen Smith PT [address], [place], [address], [facility] 12/18/2023 15:13:19 4 23411: Manual therapy completed Zhen Smith PT [address], [place], [address], [facility] 12/18/2023 15:13:19 4 10654 Therapeutic Exercise (1:1) completed Zhen Smith PT [address], [place], [address], [facility] 12/18/2023 12:31:39 4 12226: Manual therapy completed Zhen Smith PT [address], [place], [address], [facility] 12/18/2023 12:31:31 4 26678 Therapeutic Exercise (1:1) completed Shakeel Rios, CLINICAL TRIAL SPECIALIST [address], [place], [address], [facility] 12/12/2023 17:54:34 4 69723: Manual therapy completed Shakeel Rios, CLINICAL TRIAL SPECIALIST [address], [place], [address], [facility] 12/12/2023 17:54:34 4 90225 Therapeutic Exercise (1:1) completed Shakeel Rios PTA [address], [place], [address], [facility] 12/07/2023 11:12:18 4 16826: Manual therapy completed Shakeel Rios, CAREY [address], [place], [address], [facility] 12/11/2023 12:41:21 4 73027 Therapeutic Exercise (1:1) completed Zhen Smith PT [address], [place], [address], [facility] 12/06/2023 12:44:33 4 96946: Manual therapy completed Zhen Smith PT [address], [place], [address], [facility] 12/06/2023 12:44:10 4 81945 Therapeutic Exercise (1:1) completed Zhen Smith PT [address], [place], [address], [facility] 12/04/2023 12:37:09 4 75671: Manual therapy completed Zhen Smith PT [address], [place], [address], [facility] 12/04/2023 12:37:24 4 22917 Therapeutic Exercise (1:1) completed Shakeel Rios, CLINICAL TRIAL SPECIALIST [address], [place], [address], [facility] 11/29/2023 13:11:31 4 38390: Manual therapy completed Shakeel Rios CLINICAL TRIAL SPECIALIST [address], [place], [address], [facility] 11/29/2023 13:11:13 4 84548: Manual therapy completed Zhen Smith PT [address], [place], [address], [facility] 11/27/2023 11:09:35 4 41738: Manual therapy completed Zhen Smith, PT [address], [place], [address], [facility] 11/22/2023 12:46:30 4 38139: Manual therapy completed Zhen Smith, PT [address], [place], [address], [facility] 11/20/2023 12:40:40 4 60361: Manual therapy completed Zhen Smith, PT [address], [place], [address], [facility] 11/15/2023 11:21:35 4 68956: Low complexity PT Eval completed Zhen Smith, PT [address], [place], [address], [facility] 11/15/2023 11:21:27 4 G8421 BMI Not Calculated, Reason Not Specified completed Zhen Smith, PT [address], [place], [address], [facility] 11/15/2023 11:26:23 4 G8428 Current Meds NOT Documented Reason Not Specified completed Zhen Smith, PT [address], [place], [address], [facility] 11/15/2023 11:43:07 4 Sports Shoulder 4&1 completed Vazquez Heath MD [address], [place], [address], [facility] 09/06/2023 11:38:04 Imaging Results [...] Problems N Vascular Disease N Heart Attack ([place]) N Gastrointestinal Disease N Diabetes N Autoimmune [...] Diagnosis/Indication Diagnosis SNOMED-CT Code Diagnosis ICD10 Code [id number] Zhen Smith, PT [facility] [address] [place] [address] 01/29/2024 11:25:45 01/29/2024 12:35:24 History of reverse prosthetic total arthroplasty of right shoulder 5006057778 2216918 Z96.433 [id number] MD Melva Cariason PT [address] [place] [address] 01/31/2024 10:56:47 01/31/2024 12:02:23 History of reverse prosthetic total arthroplasty of right shoulder 7946371738 2343571 Z96.874 [id number] Zhen Smith, PT [facility] [address] [place] [address] 02/05/2024 11:29:18 02/05/2024 12:25:07 History of reverse prosthetic total arthroplasty of right shoulder 0208315465 2006966 Z96.494 [id number] Zhen Smith, PT [facility] [address] [place] [address] 02/07/2024 10:55:14 02/07/2024 11:43:32 History of reverse prosthetic total arthroplasty of right shoulder 4913595161 4049909 Z96.955 [id number] Zhen Smith PT [facility] [address] [place] [address] 02/12/2024 13:23:30 02/12/2024 14:18:55 History of reverse prosthetic total arthroplasty of right shoulder 4929787316 3762299 Z96.592 [id number] Zhen Smith, PT [facility] [address] [place] [address] 02/14/2024 10:50:46 02/14/2024 11:47:09 History of reverse prosthetic total arthroplasty of right shoulder 7922782186 8887372 Z96.803 [id number] MD [facility] C[facility] [address] [place] [address] 02/14/2024 09:30:28 03/06/2024 16:08:25 Rupture of rotator cuff of right shoulder 5997415569 3971895 M75.121 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 4809929341 60573 M19.734 [id number] Zhen Smith, PT [facility] [address] [place] [address] 02/19/2024 11:53:47 02/19/2024 13:01:35 History of reverse prosthetic total arthroplasty of right shoulder 0618220328 3082127 Z96.939 [id number] Zhen Smith PT [facility] [address] [place] [address] 02/21/2024 14:54:04 02/21/2024 15:54:29 History of reverse prosthetic total arthroplasty of right shoulder 9374769677 1902292 Z96.285 [id number] Zhen Smith PT [facility] [address] [place] [address] 02/28/2024 13:05:06 02/28/2024 13:24:31 History of reverse prosthetic total arthroplasty of right shoulder 0897875172 2415852 Z96.611 Health Concerns Section Related Observation LastModified by Organization Detai ls LastModified Time None Recorded Concern Status LastModified by Organization Details LastModified Time None Recorded Payers Encounter Date Sequence Insurance Name Policy Number Policy Tello Covered Member ID Tello Member ID Guarantor Name 02/28/2024 2 [facility] (MEDICARE SUPPLEMENT) [id number] Debbie Mejia [id number] 1 Debbie Mejia 02/28/2024 1 [place] [facility] Debbie Mejia [id number] Debbie Mejia Notes Date Note Type Note Provider Name and Address Organization Details Recorded Time 02/28/2024 text/html Pt states she has some shoulder pain with certain movements. Zhen Smith, PT [address], [place], [address], [facility] 02/28/2024 13:24:24 OBGyn Episode No OBEpisode recorded.
--- OUTSIDE RECORDS SUMMARY | 2024-04-23 16:30 | XMS_ITS | Continuity of Care Document ---
Author Organization [facility], Olivier PT Address [address] [place] [address] Care Team Providers Care Line Maintenance Technician Name Role Phone YARELY DINERO Referring Provider YARELY DINERO Primary Care Provider [phone] Assessment Encounter Date Assessment Date Assessment LastModified by Organization Details LastModified Time 02/21/2024 02/21/2024 A: Pt has full prom in all planes. She had some discomfort with ER pre's. P: Cont Poc. Progress to tolerance. 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 Procedures Surgical History Date Name Laterality Status Provider Name and Address Organization Details Recorded Time 4 30550 Therapeutic Exercise (1:1) completed Zhen Smith, PT [address], [place], [address], [facility] 01/01/2024 12:52:58 4 14792: Manual therapy completed Zhen Smith, PT [address], [place], [address], [facility] 01/01/2024 12:51:19 4 83431 Therapeutic Exercise (1:1) completed Shakeel Rios, SALES PROJECT ENGINEER [address], [place], [address], [facility] 12/27/2023 08:42:46 4 84144: Manual therapy completed Shakeel Rios, SALES PROJECT ENGINEER [address], [place], [address], [facility] 12/27/2023 08:42:46 4 58082 Therapeutic Exercise (1:1) completed Shakeel Rios, SALES PROJECT ENGINEER [address], [place], [address], [facility] 12/25/2023 12:38:33 4 75592: Manual therapy completed Shakeel Rios SALES PROJECT ENGINEER [address], [place], [address], [facility] 12/25/2023 12:38:37 4 88764 Therapeutic Exercise (1:1) completed Zhen Smith PT [address], [place], [address], [facility] 12/18/2023 15:13:19 4 52017: Manual therapy completed Zhen Smith PT [address], [place], [address], [facility] 12/18/2023 15:13:19 4 92938 Therapeutic Exercise (1:1) completed Zhen Smith PT [address], [place], [address], [facility] 12/18/2023 12:31:39 4 80493: Manual therapy completed Zhen Smith PT [address], [place], [address], [facility] 12/18/2023 12:31:31 4 83534 Therapeutic Exercise (1:1) completed Shakeel Rios PTA [address], [place], [address], [facility] 12/12/2023 17:54:34 4 77945: Manual therapy completed Shakeel Rios PTA [address], [place], [address], [facility] 12/12/2023 17:54:34 4 87716 Therapeutic Exercise (1:1) completed Shakeel Rios PTA [address], [place], [address], [facility] 12/07/2023 11:12:18 4 93644: Manual therapy completed Shakeel Rios PTA [address], [place], [address], [facility] 12/11/2023 12:41:21 4 21549 Therapeutic Exercise (1:1) completed Zhen Smith PT [address], [place], [address], [facility] 12/06/2023 12:44:33 4 60164: Manual therapy completed Zhen Smith PT [address], [place], [address], [facility] 12/06/2023 12:44:10 4 41265 Therapeutic Exercise (1:1) completed Zhen Smith PT [address], [place], [address], [facility] 12/04/2023 12:37:09 4 58831: Manual therapy completed Zhen Smith, PT [address], [place], [address], [facility] 12/04/2023 12:37:24 4 56765 Therapeutic Exercise (1:1) completed Shakeel Rios, SALES PROJECT ENGINEER [address], [place], [address], [facility] 11/29/2023 13:11:31 4 81413: Manual therapy completed Shakeel Rios SALES PROJECT ENGINEER [address], [place], [address], [facility] 11/29/2023 13:11:13 4 38008: Manual therapy completed Zhen Smith, PT [address], [place], [address], [facility] 11/27/2023 11:09:35 4 17972: Manual therapy completed Zhen Smith, PT [address], [place], [address], [facility] 11/22/2023 12:46:30 4 91213: Manual therapy completed Zhen Smith PT [address], [place], [address], [facility] 11/20/2023 12:40:40 4 62212: Manual therapy completed Zhen Smith PT [address], [place], [address], [facility] 11/15/2023 11:21:35 4 26406: Low complexity PT Eval completed Zhen Smith, PT [address], [place], [address], [facility] 11/15/2023 11:21:27 4 G8421 BMI Not Calculated, Reason Not Specified completed Zhen Smith, PT [address], [place], [address], [facility] 11/15/2023 11:26:23 4 G8428 Current Meds NOT Documented Reason Not Specified completed Zhen Smith, PT [address] [facility], [place], [address], [facility] 11/15/2023 11:43:07 4 Sports Shoulder 4&1 completed Vazquez Heath MD [address], [place], [address], [facility] 09/06/2023 11:38:04 Imaging Results None recorded. Procedure [...] Problems N Vascular Disease N Heart Attack ([place]) N Gastrointestinal Disease N Diabetes N Autoimmune [...] Diagnosis/Indication Diagnosis SNOMED-CT Code Diagnosis ICD10 Code [id number] Cam Anna Marie, PT [facility] [address] [place] [address] 01/22/2024 09:26:38 01/22/2024 10:29:47 History of reverse prosthetic total arthroplasty of right shoulder 0283299681 1142714 Z96.522 [id number] Zhen Smith, PT [facility] [address] [place] [address] 01/24/2024 11:51:42 01/24/2024 12:34:04 History of reverse prosthetic total arthroplasty of right shoulder 9319636025 5607129 Z96.584 [id number] Zhen Smith, PT [facility] [address] [place] [address] 01/29/2024 11:25:45 01/29/2024 12:35:24 History of reverse prosthetic total arthroplasty of right shoulder 3674609956 4105434 Z96.206 [id number] MD [facility] [address] [place] [address] 01/31/2024 10:56:47 01/31/2024 12:02:23 History of reverse prosthetic total arthroplasty of right shoulder 9381177528 3710187 Z96.660 [id number] Zhen Smith, PT [facility] [address] [place] [address] 02/05/2024 11:29:18 02/05/2024 12:25:07 History of reverse prosthetic total arthroplasty of right shoulder 0809617057 7258633 Z96.645 [id number] Zhen Smith, PT [facility] [address] [place] [address] 02/07/2024 10:55:14 02/07/2024 11:43:32 History of reverse prosthetic total arthroplasty of right shoulder 8181858989 9778305 Z96.204 [id number] Zhen Smith, PT [facility] [address] [place] [address] 02/12/2024 13:23:30 02/12/2024 14:18:55 History of reverse prosthetic total arthroplasty of right shoulder 3484444008 7383419 Z96.027 [id number] LYLE Sequeira PT [address] [place] [address] 02/14/2024 10:50:46 02/14/2024 11:47:09 History of reverse prosthetic total arthroplasty of right shoulder 8673738965 1852755 Z96.808 [id number] MD [facility] [address] [place] [address] 02/14/2024 09:30:28 03/06/2024 16:08:25 Rupture of rotator cuff of right shoulder 3024734213 6330626 M75.121 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 4172788763 38680 M19.244 [id number] LYLE Sequeira PT [address] [place] [address] 02/19/2024 11:53:47 02/19/2024 13:01:35 History of reverse prosthetic total arthroplasty of right shoulder 0430239970 1111238 Z96.212 [id number] LYLE Sequeira PT [address] [place] [address] 02/21/2024 14:54:04 02/21/2024 15:54:29 History of reverse prosthetic total arthroplasty of right shoulder 9506334634 1023213 Z96.611 Health Concerns Section Related Observation LastModified by Organization Detai ls LastModified Time None Recorded Concern Status LastModified by Organization Details LastModified Time None Recorded Payers Encounter Date Sequence Insurance Name Policy Number Policy Tello Covered Member ID Tello Member ID Guarantor Name 02/21/2024 2 [facility] Oree PLAN (MEDICARE SUPPLEMENT) [id number] Debbie Mejia [id number] Debbie Mejia 02/21/2024 1 MEDICARE B-[place]: [facility] [employer] Debbie Mejia [id number] Debbie Mejia Notes Date Note Type Note Provider Name and Address Organization Details Recorded Time 02/21/2024 text/html Pt states she has some shoulder pain with certain movements. Zhen Smith, PT [address], [place], [address], [facility] 02/21/2024 15:54:21 OBGyn Episode No OBEpisode recorded.
--- OUTSIDE RECORDS SUMMARY | 2024-04-23 16:30 | XMS_ITS | Continuity of Care Document ---
Author Organization [facility], Carrie PT Address [address] [place] [address] Care Team Providers Care Vat Tender Name Role Phone YARELY DINERO Referring Provider YARELY DINERO Primary Care Provider Assessment Encounter Date Assessment Date Assessment LastModified by Organization Details LastModified Time 02/14/2024 02/14/2024 A: Pt increased reps with pre's. Strength is improving. P: Cont Poc. Progress to tolerance. progress with deltoid resistance [email or web address] Not available 02/14/2024 11:46:50 Plan of Treatment Reminders Order Date Submit [...] Address Organization Details Recorded Time No complaints 194628324 Active Status : 'A'; Not Available 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 Procedures Surgical History Date Name Laterality Status Provider Name and Address Organization Details Recorded Time 4 61662 Therapeutic Exercise (1:1) completed Zhen Smith, PT [address], [place], [address], [facility] 01/01/2024 12:52:58 4 58654: Manual therapy completed Zhen Smith, PT [address], [place], [address], [facility] 01/01/2024 12:51:19 4 86747 Therapeutic Exercise (1:1) completed Shakeel Rios, RUBBER TRIMMER [address], [place], [address], [facility] 12/27/2023 08:42:46 4 44409: Manual therapy completed Shakeel Rios, RUBBER TRIMMER [address], [place], [address], [facility] 12/27/2023 08:42:46 4 45105 Therapeutic Exercise (1:1) completed Shakeel Rios, RUBBER TRIMMER [address], [place], [address], [facility] 12/25/2023 12:38:33 4 33838: Manual therapy completed Shakeel Rios RUBBER TRIMMER [address], [place], [address], [facility] 12/25/2023 12:38:37 4 37028 Therapeutic Exercise (1:1) completed Zhen Smith PT [address], [place], [address], [facility] 12/18/2023 15:13:19 4 19779: Manual therapy completed Zhen Smith PT [address], [place], [address], [facility] 12/18/2023 15:13:19 4 10637 Therapeutic Exercise (1:1) completed Zhen Smith PT [address], [place], [address], [facility] 12/18/2023 12:31:39 4 11596: Manual therapy completed Zhen Smith PT [address], [place], [address], [facility] 12/18/2023 12:31:31 4 50970 Therapeutic Exercise (1:1) completed Shakeel Rios PTA [address], [place], [address], [facility] 12/12/2023 17:54:34 4 65087: Manual therapy completed Shakeel Rios PTA [address], [place], [address], [facility] 12/12/2023 17:54:34 4 11945 Therapeutic Exercise (1:1) completed Shakeel Rios PTA [address], [place], [address], [facility] 12/07/2023 11:12:18 4 88009: Manual therapy completed Shakeel Rios PTA [address], [place], [address], [facility] 12/11/2023 12:41:21 4 12832 Therapeutic Exercise (1:1) completed Zhen Smith PT [address], [place], [address], [facility] 12/06/2023 12:44:33 4 58014: Manual therapy completed Zhen Smith PT [address], [place], [address], [facility] 12/06/2023 12:44:10 4 83239 Therapeutic Exercise (1:1) completed Zhen Smith PT [address], [place], [address], [facility] 12/04/2023 12:37:09 4 19606: Manual therapy completed Zhen Smith, PT [address], [place], [address], [facility] 12/04/2023 12:37:24 4 59379 Therapeutic Exercise (1:1) completed Shakeel Rios, RUBBER TRIMMER [address], [place], [address], [facility] 11/29/2023 13:11:31 4 55197: Manual therapy completed Shakeel Rios RUBBER TRIMMER [address], [place], [address], [facility] 11/29/2023 13:11:13 4 82924: Manual therapy completed Zhen Smith, PT [address], [place], [address], [facility] 11/27/2023 11:09:35 4 65689: Manual therapy completed Zhen Smith, PT [address], [place], [address], [facility] 11/22/2023 12:46:30 4 23477: Manual therapy completed Zhen Smith PT [address], [place], [address], [facility] 11/20/2023 12:40:40 4 90316: Manual therapy completed Zhen Smith PT [address], [place], [address], [facility] 11/15/2023 11:21:35 4 95621: Low complexity PT Eval completed Zhen Smith, PT [address], [place], [address], [facility] 11/15/2023 11:21:27 4 G8421 BMI Not Calculated, Reason Not Specified completed Zhen Smith, PT [address], [place], [address], [facility] 11/15/2023 11:26:23 4 G8428 Current Meds NOT Documented Reason Not Specified completed Zhen Smith, PT [address] [facility] [address], [place], [address], [facility] 11/15/2023 11:43:07 4 Sports Shoulder 4&1 completed Vazquez Heath MD [address], [place], [address], [facility] 09/06/2023 11:38:04 Imaging Results None recorded. [...] Available Not Available No t Available Vitals Date Recorded Body height Body mass index (BMI) Body weight Provider Name and Address Organization Details Last Updated DateTime 02/14/2024 167.64 cm 24.7 kg/m2 12536.63 g CHARO NELSON [facility] 02/14/2024 09:35:31 Social History None recorded. Functional Status None recorded. Mental Status None recorded. Family History Nothing Reported. Medical History Condition Response Allergies/Hayfever N Coronary Artery Disease N Anxiety/Depression N Emphysema N Thyroid Problems N COPD N Pacemaker N Anemia N Kidney/Bladder Problems N Vascular Disease N Heart Attack ([place]) N Gastrointestinal Disease N Diabetes N Autoimmune [...] Diagnosis/Indication Diagnosis SNOMED-CT Code Diagnosis ICD10 Code [id number] Cam Thrasher, PT [facility] [address] [place] [address] 01/17/2024 15:55:35 01/17/2024 16:39:27 History of reverse prosthetic total arthroplasty of right shoulder 3875034597 2574400 Z96.298 [id number] Cam Thrasher, PT [facility] [address] [place] [address] 01/22/2024 09:26:38 01/22/2024 10:29:47 History of reverse prosthetic total arthroplasty of right shoulder 6134682109 5425901 Z96.239 [id number] Zhen Smith, PT [facility] [address] [place] [address] 01/24/2024 11:51:42 01/24/2024 12:34:04 History of reverse prosthetic total arthroplasty of right shoulder 7752656353 8328629 Z96.360 [id number] Zhen Smith, PT [facility] [address] [place] [address] 01/29/2024 11:25:45 01/29/2024 12:35:24 History of reverse prosthetic total arthroplasty of right shoulder 8895462517 3522167 Z96.515 [id number] MD [facility] [address] [place] [address] 01/31/2024 10:56:47 01/31/2024 12:02:23 History of reverse prosthetic total arthroplasty of right shoulder 6650140023 6245806 Z96.856 [id number] Zhen Smith, PT [facility] [address] [place] [address] 02/05/2024 11:29:18 02/05/2024 12:25:07 History of reverse prosthetic total arthroplasty of right shoulder 2305098022 8752858 Z96.495 [id number] LYLE Sequeira PT [address] [place] [address] 02/07/2024 10:55:14 02/07/2024 11:43:32 History of reverse prosthetic total arthroplasty of right shoulder 6558778027 4612605 Z96.656 [id number] LYLE Sequeira PT [address] [place] [address] 02/12/2024 13:23:30 02/12/2024 14:18:55 History of reverse prosthetic total arthroplasty of right shoulder 5139046001 3437272 Z96.804 [id number] LYLE Sequeira PT [address] [place] [address] 02/14/2024 10:50:46 02/14/2024 11:47:09 History of reverse prosthetic total arthroplasty of right shoulder 0227322220 4725739 Z96.193 [id number] MD [facility] [address] [place] [address] 02/14/2024 09:30:28 03/06/2024 16:08:25 Rupture of rotator cuff of right shoulder 0054512372 2332834 M75.121 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 6978459221 25210 M19.011 Health Concerns Section Related Observation LastModified by Organization Detai ls LastModified Time None Recorded Concern Status LastModified by Organization Details LastModified Time None Recorded Payers Encounter Date Sequence Insurance Name Policy Number Policy Tello Covered Member ID Tello Member ID Guarantor Name 02/14/2024 2 [facility] [employer] PLAN (MEDICARE SUPPLEMENT) [id number] Debbie Mejia [id number] Debbie Mejia 02/14/2024 1 MEDICARE [place]: [facility] Debbie Mejia [id number] Debbie Mejia Notes Date Note Type Note Provider Name and Address Organization Details Recorded Time 02/14/2024 text/html The patient retu rns today doing well now 3 months status post {{right* left}}, {{anatomic Reverse*} } total shoulder arthroplasty. No significant complaints. Denies pain. Pleased with the outcome from the total shoulder arthroplasty at this juncture. Working diligently on a home stretching and light strengthening program. Has been discharged from physical therapy. PFMSH and ROS has been reviewed, updated, and is located in the patient's chart. On physical examination, well-appearing individual in no acute distress, alert and oriented x 3 with a pleasant affect. Cervical spine range of motion is full at this time without radicular signs or symptoms. No cervical outflow tenderness. Shoulder exam Anterior, middle, and posterior deltoid are intact. No axillary nerve dysfunction. Active elevation to approximately 155-160, external rotation approximately 55, internal rotation approximately 30. Anterior, middle, and posterior deltoid are intact. No shoulder instability. No warmth, no redness nor erythema. No crepitus. Global rotator cuff strength at 4+. Subscapularis is intact with a negative belly-press, lift-off and bear-hugger tests. IMPRESSION: Status post total shoulder arthroplasty. Doing well at this time. Good pain relief. Good function. Good recovery of strength. Will continue with a home exercise program. Once again encouraged them to continue with a daily stretching and light strengthening program as they will continue to see improvements both in terms of strength, function, but most importantly endurance going forward. Further radiographs not required at this time. Recommendation is a recheck in approximately one year anniversary to follow-up on the total shoulder arthroplasty. Should problems develop in the interim or questions arise, they have been encouraged to contact us, but at this time discharged from further care to follow-up prn. Vazquez Heath MD [address], [place], [address], [facility] 02/14/2024 10:15:32 02/14/2024 text/html Pt states she sa w Dr. Heath and he wanted her to continue PT. Zhen Smith, PT [address] [facility] [address], [place], [address], [facility] 02/14/2024 11:47:04 OBGyn Episode No OBEpisode recorded.
--- OUTSIDE RECORDS SUMMARY | 2024-04-23 16:31 | XMS_ITS | Continuity of Care Document ---
Author Organization [facility], [facility] Address [address] [place] [address] Care Team Providers Care Special Procedures Technologist Name Role Phone YARELY DINERO Referring Provider [phone] YARELY DINERO Primary Care Provider [phone] Assessment Encounter Date Assessment Date Assessment LastModified by Organization Details LastModified Time 02/07/2024 02/07/2024 A: Pt is progressing with cuff strength to help improve overhead mobility. Pt still have trouble lifting shoulder 2/2 pain and weakness. P: Cont Poc. Progress to tolerance. progress with deltoid resistance [email or web address] Not available 02/06/2024 12:30:00 Plan of Treatment Reminders Order Date Submit Date Provider Last Modified By Organization Details Last Modified Time Details Appointments None record ed. Lab None record ed. Referral None record ed. Procedures None record ed. Surgeries None record ed. Imaging None record ed. Medication Orders None record ed. Patient TargetsNo targets recorded. Patient InstructionsNo instructions recorded. Reason for Referral None Reported. Results Created Date Observation Date Name Description Value Unit Range Abnormal Flag Note LastModifiedBy Organization Detail LastModifiedTime 01/13/2012/21/2022 imagi ng/di agnos tic resul t No observ ation record ed. [email or web address] Not Available 12/15 02:32:47 Result Notes None recorded. 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 Procedures Surgical History Date Name Laterality Status Provider Name and Address Organization Details Recorded Time 4 21480 Therapeutic Exercise (1:1) completed Zhen Smith, PT [address], [place], [address], [facility] 01/01/2024 12:52:58 4 77736: Manual therapy completed Zhen Smith PT [address], [place], [address], [facility] 01/01/2024 12:51:19 4 58524 Therapeutic Exercise (1:1) completed Shakeel Rios PTA [address], [place], [address], [facility] 12/27/2023 08:42:46 4 64860: Manual therapy completed Shakeel Rios PTA [address], [place], [address], [facility] 12/27/2023 08:42:46 4 35951 Therapeutic Exercise (1:1) completed Shakeel Rios PTA [address], [place], [address], [facility] 12/25/2023 12:38:33 4 26776: Manual therapy completed Shakeel Rios PTA [address], [place], [address], [facility] 12/25/2023 12:38:37 4 86742 Therapeutic Exercise (1:1) completed Zhen Smith PT [address], [place], [address], [facility] 12/18/2023 15:13:19 4 31498: Manual therapy completed Zhen Smith, PT [address], [place], [address], [facility] 12/18/2023 15:13:19 4 14358 Therapeutic Exercise (1:1) completed Zhen Smith, PT [address], [place], [address], [facility] 12/18/2023 12:31:39 4 79624: Manual therapy completed Zhen Smith, PT [address], [place], [address], [facility] 12/18/2023 12:31:31 4 25397 Therapeutic Exercise (1:1) completed Shakeel Rios PRESIDENT AND CMO [address], [place], [address], [facility] 12/12/2023 17:54:34 4 41466: Manual therapy completed Shakeel Rios PTA [address], [place], [address], [facility] 12/12/2023 17:54:34 4 35775 Therapeutic Exercise (1:1) completed Shakeel Rios PTA [address], [place], [address], [facility] 12/07/2023 11:12:18 4 19701: Manual therapy completed Shakeel Rios PTA [address], [place], [address], [facility] 12/11/2023 12:41:21 4 13701 Therapeutic Exercise (1:1) completed Zhen Smith PT [address], [place], [address], [facility] 12/06/2023 12:44:33 4 09868: Manual therapy completed Zhen Smith PT [address], [place], [address], [facility] 12/06/2023 12:44:10 4 42004 Therapeutic Exercise (1:1) completed Zhen Smith PT [address], [place], [address], [facility] 12/04/2023 12:37:09 4 59327: Manual therapy completed Zhen Smith, PT [address], [place], [address], [facility] 12/04/2023 12:37:24 4 50142 Therapeutic Exercise (1:1) completed Shakeel Rios, PRESIDENT AND CMO [address], [place], [address], [facility] 11/29/2023 13:11:31 4 04411: Manual therapy completed Shakeel Rios, PRESIDENT AND CMO [address], [place], [address], [facility] 11/29/2023 13:11:13 4 92633: Manual therapy completed Zhen Smith, PT [address], [place], [address], [facility] 11/27/2023 11:09:35 4 86546: Manual therapy completed Zhen Smith, PT [address], [place], [address], [facility] 11/22/2023 12:46:30 4 97908: Manual therapy completed Zhen Smith PT [address], [place], [address], [facility] 11/20/2023 12:40:40 4 12644: Manual therapy completed Zhen Smith, PT [address], [place], [address], [facility] 11/15/2023 11:21:35 4 46998: Low complexity PT Eval completed Zhen Smith, PT [address], [place], [address], [facility] 11/15/2023 11:21:27 4 G8421 BMI Not Calculated, Reason Not Specified completed Zhen Smith, PT [address], [place], [address], [facility] 11/15/2023 11:26:23 4 G8428 Current Meds NOT Documented Reason Not Specified completed Zhen Smith, PT [address], [place], [address], [facility] 11/15/2023 11:43:07 4 Sports Shoulder 4&1 completed Vazquez Heath MD [address], [place], [address], [facility] 09/06/2023 11:38:04 Imaging Results [...] Disease N Gastrointestinal Disease N Heart Attack (VT) N Diabetes N Autoimmune disease N Bleeding [...] Diagnosis/Indication Diagnosis SNOMED-CT Code Diagnosis ICD10 Code [id number] FRANKLYN [facility] 3rd floor [address] [facility] [place] [address] 01/10/2024 09:20:17 02/02/2024 11:30:34 History of reverse prosthetic total arthroplasty of right shoulder 8447754072 9897626 Z96.104 [id number] Cam Thrasher PT [facility] [address] [facility] [place] [address] 01/17/2024 15:55:35 01/17/2024 16:39:27 History of reverse prosthetic total arthroplasty of right shoulder 1951375592 1066651 Z96.340 [id number] Cam Thrasher PT [facility] [address] [facility] [place] [address] 01/22/2024 09:26:38 01/22/2024 10:29:47 History of reverse prosthetic total arthroplasty of right shoulder 7439491832 1281593 Z96.716 [id number] Zhen Smith PT [facility] [address] [facility] [place] [address] 01/24/2024 11:51:42 01/24/2024 12:34:04 History of reverse prosthetic total arthroplasty of right shoulder 7511098504 0307106 Z96.611 [id number] Zhen Smith PT [facility] [address] [facility] [place] [address] 01/29/2024 11:25:45 01/29/2024 12:35:24 History of reverse prosthetic total arthroplasty of right shoulder 9955959059 2752172 Z96.192 [id number] MD [facility] [address] [place] [address] 01/31/2024 10:56:47 01/31/2024 12:02:23 History of reverse prosthetic total arthroplasty of right shoulder 1674769578 5017402 Z96.226 [id number] Zhen Smith, PT [facility] [address] [place] [address] 02/05/2024 11:29:18 02/05/2024 12:25:07 History of reverse prosthetic total arthroplasty of right shoulder 0139046299 7750858 Z96.390 [id number] Zhen Smith PT [facility] [address] [place] [address] 02/07/2024 10:55:14 02/07/2024 11:43:32 History of reverse prosthetic total arthroplasty of right shoulder 4093123908 6845720 Z96.611 Health Concerns Section Related Observation LastModified by Organization Detai ls LastModified Time None Recorded Concern Status LastModified by Organization Details LastModified Time None Recorded Payers Encounter Date Sequence Insurance Name Policy Number Policy Tello Covered Member ID Tello Member ID Guarantor Name 02/07/2024 2 [facility] [employer] (MEDICARE SUPPLEMENT) [id number] Debbie Mejia [id number] 1 Debbie Mejia 02/07/2024 1 [place] [facility] Debbie Mejia [id number] 0 Debbie Mejia Notes Date Note Type Note Provider Name and Address Organization Details Recorded Time 02/07/2024 text/html Pt states shoulder is the same as last time. Shakeel Rios, PRESIDENT AND CMO [address], [place], [address], [place] - [facility] 02/07/2024 11:43:27 OBGyn Episode No OBEpisode recorded.
--- OUTSIDE RECORDS SUMMARY | 2024-04-23 16:31 | XMS_ITS | Continuity of Care Document ---
Author Organization [facility], [facility] Address [address] [place] [address] Care Team Providers Care Gaming Cashier Name Role Phone YARELY DINERO Referring Provider YARELY DINERO Primary Care Provider [phone] Assessment Encounter Date Assessment Date Assessment LastModified by Organization Details LastModified Time 02/05/2024 02/05/2024 A: Pt cont build cuff and scap strength to help improve overhead activities. P: Cont Poc. Progress to tolerance. 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 Procedures Surgical History Date Name Laterality Status Provider Name and Address Organization Details Recorded Time 4 99820 Therapeutic Exercise (1:1) completed Zhen Smith PT [address], [place], [address], [facility] 01/01/2024 12:52:58 4 12965: Manual therapy completed Zhen Smith PT [address], [place], [address], [facility] 01/01/2024 12:51:19 4 00807 Therapeutic Exercise (1:1) completed Shakeel Rios PTA [address], [place], [address], [facility] 12/27/2023 08:42:46 4 61756: Manual therapy completed Shakeel Rios PTA [address], [place], [address], [facility] 12/27/2023 08:42:46 4 07802 Therapeutic Exercise (1:1) completed Shakeel Rios PTA [address], [place], [address], [facility] 12/25/2023 12:38:33 4 79075: Manual therapy completed Shakeel Rios PTA [address], [place], [address], [facility] 12/25/2023 12:38:37 4 55746 Therapeutic Exercise (1:1) completed Zhen Smith PT [address], [place], [address], [facility] 12/18/2023 15:13:19 4 30307: Manual therapy completed Zhen Smith PT [address], [place], [address], [facility] 12/18/2023 15:13:19 4 74471 Therapeutic Exercise (1:1) completed Zhen Smith, PT [address], [place], [address], [facility] 12/18/2023 12:31:39 4 97323: Manual therapy completed Zhen Smith PT [address], [place], [address], [facility] 12/18/2023 12:31:31 4 60230 Therapeutic Exercise (1:1) completed Shakeel Rios PTA [address], [place], [address], [facility] 12/12/2023 17:54:34 4 01271: Manual therapy completed Shakeel Rios PTA [address], [place], [address], [facility] 12/12/2023 17:54:34 4 73513 Therapeutic Exercise (1:1) completed Shakeel Rios PTA [address], [place], [address], [facility] 12/07/2023 11:12:18 4 17720: Manual therapy completed Shakeel Rios PTA [address], [place], [address], [facility] 12/11/2023 12:41:21 4 45760 Therapeutic Exercise (1:1) completed Zhen Smith PT [address], [place], [address], [facility] 12/06/2023 12:44:33 4 09696: Manual therapy completed Zhen Smith PT [address], [place], [address], [facility] 12/06/2023 12:44:10 4 56193 Therapeutic Exercise (1:1) completed Zhen Smith, PT [address], [place], [address], [facility] 12/04/2023 12:37:09 4 33662: Manual therapy completed Zhen Smith, PT [address], [place], [address], [facility] 12/04/2023 12:37:24 4 07924 Therapeutic Exercise (1:1) completed Shakeel Rios, BOOKING CLERK [address], [place], [address], [facility] 11/29/2023 13:11:31 4 73785: Manual therapy completed Shakeel Rios, BOOKING CLERK [address], [place], [address], [facility] 11/29/2023 13:11:13 4 05813: Manual therapy completed Zhen Smith, PT [address], [place], [address], [facility] 11/27/2023 11:09:35 4 87049: Manual therapy completed Zhen Smith, PT [address], [place], [address], [facility] 11/22/2023 12:46:30 4 89020: Manual therapy completed Zhen Smith, PT [address], [place], [address], [facility] 11/20/2023 12:40:40 4 12724: Manual therapy completed Zhen Smith PT [address], [place], [address], [facility] 11/15/2023 11:21:35 4 49628: Low complexity PT Eval completed Zhen Smith, PT [address], [place], [address], [facility] 11/15/2023 11:21:27 4 G8421 BMI Not Calculated, Reason Not Specified completed Zhen Smith, PT [address], [place], [address], [facility] 11/15/2023 11:26:23 4 G8428 Current Meds NOT Documented Reason Not Specified completed Zhen Smith, PT [address], [place], [address], [facility] 11/15/2023 11:43:07 4 Sports Shoulder 4&1 completed Vazquez Heath MD [address], [place], [address], [facility] 09/06/2023 11:38:04 Imaging Results None recorded. [...] N Kidney/Bladder Problems N Vascular Disease N Gastrointestinal Disease N Heart Attack (IA) N Diabetes N Autoimmune disease N Bleeding Disorder N Orthotics N Seizures/Epilepsy N Arthritis N Blood Clot N AIDS/HIV N Congestive Heart Failure (CHF) N Acid Reflux (GERD) N Cancer N Stroke N Asthma N Peripheral Vascular Disease N Sleep Apnea N Hepatitis N Heart Disease N Rheumatoid Arthritis N Pulmonary Embolism N Arrhythmia N Fibromyalgia N Hypertension N Osteoporosis N Gynecological HistoryNo gynecological history recorded. Obstetrics History GPAL:G 0 P 0 0 0 0 Past Encounters Encounter ID Performer Location Encounter Start Date Encounter Closed Date Diagnosis/Indication Diagnosis SNOMED-CT Code Diagnosis ICD10 Code [id number] FRANKLYN Peg[facility]ero 3rd floor [address] [place] [address] 01/10/2024 09:20:17 02/02/2024 11:30:34 History of reverse prosthetic total arthroplasty of right shoulder 0825058128 4184537 Z96.752 [id number] Cam Thrasher, PT [facility] [address] [place] [address] 01/17/2024 15:55:35 01/17/2024 16:39:27 History of reverse prosthetic total arthroplasty of right shoulder 9058070311 3698693 Z96.130 [id number] Cam Thrasher PT [facility] [address] [place] [address] 01/22/2024 09:26:38 01/22/2024 10:29:47 History of reverse prosthetic total arthroplasty of right shoulder 0527043629 9765489 Z96.897 [id number] Zhen Smith, PT [facility] [address] [place] [address] 01/24/2024 11:51:42 01/24/2024 12:34:04 History of reverse prosthetic total arthroplasty of right shoulder 4531536229 9244811 Z96.521 [id number] Zhne Smith, PT [facility] [address] [place] [address] 01/29/2024 11:25:45 01/29/2024 12:35:24 History of reverse prosthetic total arthroplasty of right shoulder 2161630331 5471051 Z96.752 [id number] MD [facility] [address] [place] [address] 01/31/2024 10:56:47 01/31/2024 12:02:23 History of reverse prosthetic total arthroplasty of right shoulder 4684294742 1351553 Z96.048 [id number] Zhen Smith, PT [facility] [address] [address] [address] 02/05/2024 11:29:18 02/05/2024 12:25:07 History of reverse prosthetic total arthroplasty of right shoulder 4089134830 9706254 Z96.611 Health Concerns Section Related Observation LastModified by Organization Detai ls LastModified Time None Recorded Concern Status LastModified by Organization Details LastModified Time None Recorded Payers Encounter Date Sequence Insurance Name Policy Number Policy Tello Covered Member ID Tello Member ID Guarantor Name 02/05/2024 2 [facility] (MEDICARE SUPPLEMENT) [id number] Debbie Mejia [id number] Debbie Mejia 02/05/2024 1 MEDIC[place] B-[place]: [facility] Debbie Mejia [id number] Debbie Mejia Notes Date Note Type Note Provider Name and Address Organization Details Recorded Time 02/05/2024 text/html Pt reporting 5/ 0 pain.Pt states she still have difficulties reaching overhead Shakeel Rios, BOOKING CLERK [address], [place], [address], [facility] 02/05/2024 12:24:59 OBGyn Episode No OBEpisode recorded.
--- OUTSIDE RECORDS SUMMARY | 2024-04-23 16:31 | XMS_ITS | Continuity of Care Document ---
Author Organization formerly [facility], [facility] Address [address] [place] [address] Care Team Providers Care Tipple Repairer Name Role Phone YARELY DINERO Referring Provider YARELY DINERO Primary Care Provider Assessment Encounter Date Assessment Date Assessment LastModified by Organization Details LastModified Time 02/12/2024 02/12/2024 A: Pt active scaption has improved. Increased reps with pre's. P: Cont Poc. Progress to tolerance. progress with deltoid resistance [email or web address] Not available 02/12/2024 14:18:20 Plan of Treatment Reminders Order Date Submit [...] Address Organization Details Recorded Time No complaints [id number] Active Status : 'A'; Not Available [facility] 4 09:21:31 Rupture of rotator cuff of right shoulder [id number] 9103 Active 2023 Vazquez Heath MD [address], [place], [address] , 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 Procedures Surgical History Date Name Laterality Status Provider Name and Address Organization Details Recorded Time 4 25233 Therapeutic Exercise (1:1) completed Zhen Smith PT [address], [place], [address], [facility] 01/01/2024 12:52:58 4 14475: Manual therapy completed Zhen Smith PT [address], [place], [address], [facility] 01/01/2024 12:51:19 4 01935 Therapeutic Exercise (1:1) completed Shakeel Rios PTA [address], [place], [address], [facility] 12/27/2023 08:42:46 4 53627: Manual therapy completed Shakeel Rios PTA [address], [place], [address], [facility] 12/27/2023 08:42:46 4 86504 Therapeutic Exercise (1:1) completed Shakeel Rios PTA [address], [place], [address], [facility] 12/25/2023 12:38:33 4 78086: Manual therapy completed Shakeel Rios PTA [address], [place], [address], [facility] 12/25/2023 12:38:37 4 45090 Therapeutic Exercise (1:1) completed Zhen Smith PT [address], [place], [address], [facility] 12/18/2023 15:13:19 4 97033: Manual therapy completed Zhen Smith PT [address], [place], [address], [facility] 12/18/2023 15:13:19 4 04055 Therapeutic Exercise (1:1) completed Zhen Smith, PT [address], [place], [address], [facility] 12/18/2023 12:31:39 4 92390: Manual therapy completed Zhen Smith PT [address], [place], [address], [facility] 12/18/2023 12:31:31 4 95404 Therapeutic Exercise (1:1) completed Shakeel Rios PTA [address], [place], [address], [facility] 12/12/2023 17:54:34 4 21100: Manual therapy completed Shakeel Rios PTA [address], [place], [address], [facility] 12/12/2023 17:54:34 4 61989 Therapeutic Exercise (1:1) completed Shakeel Rios PTA [address], [place], [address], [facility] 12/07/2023 11:12:18 4 76846: Manual therapy completed Shakeel Rios PTA [address], [place], [address], [facility] 12/11/2023 12:41:21 4 99421 Therapeutic Exercise (1:1) completed Zhen Smith PT [address], [place], [address], [facility] 12/06/2023 12:44:33 4 26979: Manual therapy completed Zhen Smith PT [address], [place], [address], [facility] 12/06/2023 12:44:10 4 92634 Therapeutic Exercise (1:1) completed Zhen Smith, PT [address], [place], [address], [facility] 12/04/2023 12:37:09 4 70564: Manual therapy completed Zhen Smith, PT [address], [place], [address], [facility] 12/04/2023 12:37:24 4 49338 Therapeutic Exercise (1:1) completed Shakeel Rios, CVT TECH [address], [place], [address], [facility] 11/29/2023 13:11:31 4 57676: Manual therapy completed Shakeel Rios, CVT TECH [address], [place], [address], [facility] 11/29/2023 13:11:13 4 77068: Manual therapy completed Zhen Smith, PT [address], [place], [address], [facility] 11/27/2023 11:09:35 4 23023: Manual therapy completed Zhen Smith, PT [address], [place], [address], [facility] 11/22/2023 12:46:30 4 88940: Manual therapy completed Zhen Smith, PT [address], [place], [address], [facility] 11/20/2023 12:40:40 4 09599: Manual therapy completed Zhen Smith PT [address], [place], [address], [facility] 11/15/2023 11:21:35 4 90268: Low complexity PT Eval completed Zhen Smith, PT [address], [place], [address], [facility] 11/15/2023 11:21:27 4 G8421 BMI Not Calculated, Reason Not Specified completed Zhen Smith, PT [address], [place], [address], [facility] 11/15/2023 11:26:23 4 G8428 Current Meds NOT Documented Reason Not Specified completed Zhen Smith, PT [address], [place], [address], [facility] 11/15/2023 11:43:07 4 Sports Shoulder 4&1 completed Vazquez Heath MD [address], [place], [address], [facility] 09/06/2023 11:38:04 Imaging Results None [...] Disease N Gastrointestinal Disease N Heart Attack (NE) N Diabetes N Autoimmune disease N Bleeding [...] Diagnosis/Indication Diagnosis SNOMED-CT Code Diagnosis ICD10 Code [id number] Cam Thrasher, PT [facility] [address] [place] [address] 01/17/2024 15:55:35 01/17/2024 16:39:27 History of reverse prosthetic total arthroplasty of right shoulder [id number] 8125995 Z96.578 [id number] Cam Thrasher PT [facility] [address] [place] [address] 01/22/2024 09:26:38 01/22/2024 10:29:47 History of reverse prosthetic total arthroplasty of right shoulder 2754304994 4675388 Z96.047 [id number] Zhen Smith PT [facility] [address] [place] [address] 01/24/2024 11:51:42 01/24/2024 12:34:04 History of reverse prosthetic total arthroplasty of right shoulder 0115911545 9830359 Z96.533 [id number] Zhen Smith PT [facility] [address] [place] [address] 01/29/2024 11:25:45 01/29/2024 12:35:24 History of reverse prosthetic total arthroplasty of right shoulder 5646235979 6692600 Z96.227 [id number] MD [facility] [address] [place] [address] 01/31/2024 10:56:47 01/31/2024 12:02:23 History of reverse prosthetic total arthroplasty of right shoulder 2978831032 5998772 Z96.229 [id number] Zhen Smith PT [facility] [address] [place] [address] 02/05/2024 11:29:18 02/05/2024 12:25:07 History of reverse prosthetic total arthroplasty of right shoulder 6512918902 2079389 Z96.692 [id number] Zhen Smith, PT [facility] [address] [place] [address] 02/07/2024 10:55:14 02/07/2024 11:43:32 History of reverse prosthetic total arthroplasty of right shoulder 0994349686 8098598 Z96.493 [id number] Zhen Smith PT [facility] [address] [place] [address] 02/12/2024 13:23:30 02/12/2024 14:18:55 History of reverse prosthetic total arthroplasty of right shoulder 6983450169 2271597 Z96.611 Health Concerns Section Related Observation LastModified by Organization Detai ls LastModified Time None Recorded Concern Status LastModified by Organization Details LastModified Time None Recorded Payers Encounter Date Sequence Insurance Name Policy Number Policy Tello Covered Member ID Tello Member ID Guarantor Name 02/12/2024 2 [facility] (MEDICARE SUPPLEMENT) [id number] Debbie Mejia [id number] 1 Debbie Mejia 02/12/2024 1 MEDICARE B-SC: [facility] [employer] [facility] Debbie Mejia [id number] Debbie Mejia Notes Date Note Type Note Provider Name and Address Organization Details Recorded Time 02/12/2024 text/html Pt states she doesn't have any shoulder pain right now but if she raises it out to the side it bothers her. Zhen Smith, PT [address], [place], [address], [facility] 02/12/2024 14:18:35 OBGyn Episode No OBEpisode recorded.
== END 2024-04-17 12:42 | disposition home or self-care (01) ==
PROVIDERS: Physician Assistant Surgical; PCP Internal Medicine; Visit Provider Psychiatry & Neurology Neurology
PROC: 009U3ZZ Drainage of Spinal Canal, Percutaneous Approach (ICD-10-PCS; CPT 62270; principal; 2024-04-17 11:00)
DX: G91.2 (Idiopathic) normal pressure hydrocephalus (principal); R26.89 Other abnormalities of gait and mobility; G62.9 Polyneuropathy, unspecified; E78.5 Hyperlipidemia, unspecified; M19.90 Unspecified osteoarthritis, unspecified site; Z79.899 Other long term (current) drug therapy
CPT/HCPCS: 62328; 82945; 84157; 87015; 87070; 87205; 89051; J2003

== ENCOUNTER → 2024-04-17 11:00 | Outpatient (BNV) | payer MEDICARE, SELFPAY | PROVIDERS: PCP Internal Medicine; Visit Provider Physician Assistant Surgical | DX: G91.2 (Idiopathic) normal pressure hydrocephalus (principal) | CPT/HCPCS: 62328 ==

== ENCOUNTER 2024-12-04 14:01 | Outpatient (REF) | payer MEDICARE, OTHER, SELFPAY ==
[2024-12-05 08:01] LABS: Syphilis Screen Nonreactive (Nonreactive)
[2024-12-05 12:54] LABS: Lyme Abs Screen <0.90 index
== END 2024-12-04 14:02 | disposition home or self-care (01) ==
LOC: HO.LAB 14:01
PROVIDERS: PCP Internal Medicine; Visit Provider Psychiatry & Neurology Neurology
DX: Z11.3 Encounter for screening for infections with a predominantly sexual mode of transmission (principal); R26.89 Other abnormalities of gait and mobility; F41.9 Anxiety disorder, unspecified; Z01.84 Encounter for antibody response examination; Z79.899 Other long term (current) drug therapy
CPT/HCPCS: 36415; 82784; 85652; 86334; 86617; 86618; 86780; 99212

== ENCOUNTER 2024-12-04 14:01 | Outpatient (AMB) | payer MEDICARE, OTHER, SELFPAY ==
--- NOTE | 2024-12-04 14:22 | MHC.OFFVIS ---
Intake Visit Reasons: 6 Month Anxiety Allergies No Known Allergies Allergy (Verified 12/03/24 07:55) HPI Comments Details: 79 yo woman with gait disorder for a year or more. Exam revealed signs of festinent gait and of peripheral neuropathy. Her gait disorder is likely multifactorial but neuropathy is not severe enough to explain it. Her brain MRI revealed ventriculomegaly that likely is impacting her gait. She tried carbidopa/levodopa and it did not help much. She has stopped taking it. She had a lumbar puncture to see if she could benefit from shunting. Lumbar puncture did not result in any benefit. CSF protein was 69. She was c/o difficulty walking saying that she was not able to walk and not going to the gnosticist. Despite that, she walked to the exam room, though holding a cane. She was c/o prominant veins on her legs and swelling of legs and feet. [facility] Medical History (Updated 12/04/24 @ 14:25 by Marcelle Castañeda MD) Anxiety NPH (normal pressure hydrocephalus) Multifactorial gait disorder Osteoarthritis Peripheral neuropathy Review of Systems Const Details: Constitutional:?No fever, chills, fatigue, weight loss, or night sweats. HEENT:?No headache, vision changes, hearing loss, nasal congestion, sore throat. Neurological:? Difficulty walking and remembering. Psychiatric:?No anxiety, depression, mood swings, sleep disturbance, or hallucinations. Endocrine:?No heat/cold intolerance, polydipsia, polyuria, or hair/skin changes. Hematologic/Lymphatic:?No easy bruising, bleeding, or lymphadenopathy. Integumentary (Skin):?No rash, lesions, itching, or color changes. ? Assessment & Plan Assessment & Plan (1) Anxiety: Code(s): F41.9 - Anxiety disorder, unspecified Category: Medical (2) Multifactorial gait disorder: Comment: LP at [facility] [place] [place] in Apr 2024: OP 5cm, WBCs 4, RBCs 4, Glu 61, Pro 69 NCV/EMG LE Moderate bilateral peroneal motor neuropathy not of entrapment type. 09/28/23 MRI brain WO at [facility] in Jun 2023: Mild MVD, Mild to mod ventriculomegaly. Code(s): R26.89 - Other abnormalities of gait and mobility Category: Medical Plan Impression: a: Multifactorial gait disorder b: MRI brain in 2023 at [facility] revealed mild to moderate ventricular enlargement suggestive of NPH but LP did not result in improvement of gait or balance c: Moderately high CSF protein of unknown etiology b: Anxiety disorder Rec: a: Sertaline 25mg a day Orders: Orders Erythrocyte Sedimentation Rate Today R26.89 - Other abnormalities of gait and mobility Lyme IgG/IgM w/reflex to WB Today F41.9 - Anxiety disorder, unspecified Immunofixation Pnl, Serum Today F41.9 - Anxiety disorder, unspecified Syphilis Screen Today F41.9 - Anxiety disorder, unspecified Medications: New sertraline 25 mg PO DAILY 90 tabs 0RF Coding Level of Care Code Tele Est Pt Level 4 (05880) Diagnoses Anxiety F41.9 Multifactorial gait disorder R26.89
== END 2024-12-04 14:51 | disposition home or self-care (01) ==
PROVIDERS: PCP Internal Medicine; Visit Provider Psychiatry & Neurology Neurology
DX: F41.9 Anxiety disorder, unspecified (principal); R26.89 Other abnormalities of gait and mobility
CPT/HCPCS: 99214

== ENCOUNTER → 2025-01-06 12:17 | Outpatient (BNVA) | payer MEDICARE, OTHER, SELFPAY | PROVIDERS: PCP Internal Medicine; Visit Provider Psychiatry & Neurology Neurology | DX: G91.2 (Idiopathic) normal pressure hydrocephalus (principal); R26.89 Other abnormalities of gait and mobility; F41.9 Anxiety disorder, unspecified | CPT/HCPCS: 99212 ==

== ENCOUNTER → 2025-01-06 12:17 | Outpatient (AMB) | payer MEDICARE, OTHER, SELFPAY ==
--- NOTE | 2025-01-06 12:24 | A.OFFVIS_ITS ---
Intake Visit Reasons: 2 M with gait disorder Allergies No Known Allergies Allergy (Verified 12/03/24 07:55) HPI Comments Details: 79 yo woman with gait disorder for a year or more. Exam revealed signs of festinent gait and of peripheral neuropathy. Her gait disorder is likely multifactorial but neuropathy is not severe enough to explain it. Her brain MRI revealed ventriculomegaly that likely is impacting her gait. She tried carbidopa/levodopa and it did not help much. She has stopped taking it. She had a lumbar puncture to see if she could benefit from shunting. Lumbar puncture did not result in any benefit. CSF protein was 69. She continues to complain that she could not walk but she has been walking albeit with some difficulty. She and her stated that nothing I did has helped. They wanted to go to [place] for a second opinion. [facility] Medical History (Updated 12/04/24 @ 14:25 by Marcelle Castañeda MD) Anxiety NPH (normal pressure hydrocephalus) Multifactorial gait disorder Osteoarthritis Peripheral neuropathy Review of Systems Const Details: She continues to c/o difficulty walking. No urinary or bowel difficulties. NO significant pain. Physical Exam Neuro Other: Mental Status: Alert and oriented to person, place, and time. Normal attention. Normal spontaneous speech, fluency, and comprehension. No obvious issues with mood and memory. Affect is appropriate. Cranial Nerves: CN II: Visual shipley full to confrontation, visual acuity intact. CN III, IV, : Pupils equal, round, reactive to light and accommodation. Extraocular movements are normal. CN V: Facial sensation is normal. CN VII: Facial movements symmetrical. CN VIII: Hearing intact to bedside conversation is normal. CN IX, X: Palate elevates symmetrically. CN XI: Shoulder shrug and head turn symmetrical. CN XII: Tongue midline without atrophy or fasciculations. She is walking cautiously, at times taking small steps and freezing, and using a cane. Extrapyramidal: Full facial expressions and blinking. No rigidity. Movements are appropriate with no tremor or abnormality. Speech: Normal; no dysarthria or tremor. 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 09/28/23 MRI brain WO at [facility] in Jun 2023: Mild MVD, Mild to mod ventriculomegaly. Code(s): R26.89 - Other abnormalities of gait and mobility Category: Medical (3) Anxiety: Code(s): F41.9 - Anxiety disorder, unspecified Category: Medical Plan Impression: a: Multifactorial gait disorder b: MRI brain in 2023 at [facility] revealed mild to moderate ventricular enlargement suggestive of NPH but LP did not result in improvement of gait or balance c: Moderately high CSF protein of unknown etiology b: Anxiety disorder Rec: As treatment with levodopa or LP has not helped, and no other treatable cause is found, she is advised to have second opinion. She may consider it in [place], with Dr. Rivera, or with [facility] neurology, or in [place]. I explained the situation to the couple and at this time, she wanted to not make any decision without talking with her son. If she prefers to go to [place], an appointment with Movement disorder center in [facility], [facility], or [facility] [facility] can be considered. Coding Level of Care Code Est Pt Level 4 (57792) Diagnoses NPH (normal pressure hydrocephalus) G91.2 Multifactorial gait disorder R26.89 Anxiety F41.9
== END ==
LOC: HO.HSM 12:18
PROVIDERS: PCP Internal Medicine; Visit Provider Psychiatry & Neurology Neurology
DX: G91.2 (Idiopathic) normal pressure hydrocephalus (principal); R26.89 Other abnormalities of gait and mobility; F41.9 Anxiety disorder, unspecified
CPT/HCPCS: 99214